=== PATIENT | male | born 1945 | race Caucasian/White ===

== ENCOUNTER 2023-01-30 05:25 | Inpatient (IN) ==
--- NOTE | 2023-01-30 07:05 | Emergency Department Note ---
History of Present Illness General Chief complaint: Wound Recheck Stated complaint: RECHECK OF INJURY TO RIGHT THUMB Time Seen by Provider: 01/30/23 07:03 History of Present Illness This is a 77-year-old male who presents to the emergency department via private vehicle with complaints of "right thumb wound". The patient notes that he was seen here on 01/17/2023 for tablesaw injury to the right thumb. He is right- hand dominant. He states that he has not changed the dressing and has not seen the wound until today when he presented for suture removal and further assessment. He did take the antibiotics as prescribed. He did not follow-up with orthopedics as previously recommended. No fevers or chills. He does note some discomfort to the distal aspect of the right thumb but minimal overall. No nausea or vomiting. Home Medications Medication Instructions Recorded Confirmed Type aspirin 81 mg tablet 81 mg PO DAILY 08/02/22 01/30/23 History prevagen 1 cap PO DAILY 08/02/22 01/30/23 History atenolol 25 mg tablet 12.5 mg (1/2 x 25 mg) PO DAILY #45 12/23/22 01/30/23 Rx tabs atorvastatin 40 mg tablet 40 mg PO DAILY #90 tabs 12/23/22 01/30/23 Rx omeprazole 20 mg tablet,delayed 20 mg PO DAILY #90 tabs 12/23/22 01/30/23 Rx release docusate sodium 100 mg capsule 100 mg PO BID PRN Constipation 01/30/23 01/30/23 History (Colace) Allergies Allergy/AdvReac Type Severity Reaction Status Date / Time No Known Allergies Allergy Unknown Unverified 08/02/22 09:02 Past Med/Surg History Medical History Hypercholesterolemia Hypertension Surgical History History of orthopedic surgery Family History Other No significant family history Social History Smoking Status: Unknown if ever smoked Tobacco Type: Cigarettes Hx Alcohol Use: No Hx Substance Use: No Preferred Language: Ecuadorean Communication Ability: Effective Investment Manager Required: No Beliefs That Will Affect Care: None Current Living Situation: Alone Feels Safe at Home: Yes Assistive Devices: None Review of Systems A total of 10 systems reviewed and were otherwise negative Physical Exam Vital Signs Vital Signs - 24 hr 01/30/23 05:30 01/30/23 07:33 01/30/23 10:49 Temperature 36.5 C Temperature Source Temporal Artery Scan Pulse Rate 65 Pulse Rate [Finger] 56 L 62 Pulse Rhythm [Finger] Regular Regular Pulse Strength [Finger] Normal Normal Respiratory Rate 14 18 18 Respiratory Effort / Characteristics Non-Labored Spontaneous Non-Labored Spontaneous Non-Labored Spontaneous Respiratory Depth Normal Normal Normal Respiratory Pattern Regular Regular Blood Pressure 156/70 H Blood Pressure [Right Arm] 150/80 H 144/82 H Blood Pressure Mean 98 Blood Pressure Mean [Right Arm] 103 102 Blood Pressure Position [Right Arm] Sitting Pulse Oximetry 100 98 99 Oxygen Delivery Method Room Air Room Air Room Air Sepsis Recent Fever Within 48 Hours No Sepsis New/Unexplained Change in Mental Status No Sepsis Action Taken by Nursing No Action Required 01/30/23 12:50 Temperature Temperature Source Pulse Rate Pulse Rate [Finger] 66 Pulse Rhythm [Finger] Regular Pulse Strength [Finger] Respiratory Rate 18 Respiratory Effort / Characteristics Non-Labored Spontaneous Respiratory Depth Normal Respiratory Pattern Regular Blood Pressure Blood Pressure [Right Arm] 125/72 Blood Pressure Mean Blood Pressure Mean [Right Arm] 89 Blood Pressure Position [Right Arm] Pulse Oximetry 98 Oxygen Delivery Method Room Air Sepsis Recent Fever Within 48 Hours Sepsis New/Unexplained Change in Mental Status Sepsis Action Taken by Nursing VITAL SIGNS - Vital signs and nursing notes were reviewed. Stable and afebrile. GENERAL - 77-year-old male appearing his stated age who is in no acute distress. Communicates well with provider and answers questions appropriately. SKIN - R thumb with dark discoloration, proximal erythema with intact sutures. Pictures of the wounds obtained after appropriate sent with the patient with images as above. HEAD - NC/AT. MOUTH/OROPHARYNX - Without perioral cyanosis. NECK - Neck with FROM. No nuchal rigidity. LUNGS -CTA CARDIAC - RRR EXTREMITIES - No clubbing or peripheral cyanosis. Chronic right thumb with a darkened distal region with diminished cap refill. Nail intact. Sutures intact. +5/5 strength noted in UE/LE bilaterally. NEUROLOGIC - Cranial nerves II through XII grossly intact. PSYCH - A&O, and cooperates fully with examiner. Pt is very pleasant and interacts well with examiner. Course Administered Medications Aspirin (Aspirin 81 Mg Ectab) 81 mg PO DAILY [facility] Stop: 03/02/23 08:59 Last Admin: 02/02/23 09:12 Dose: 81 mg Documented By: Admin: 02/01/23 08:40 Dose: 81 mg Documented By: Admin: 01/31/23 08:20 Dose: 81 mg Documented By: MING Atenolol (Atenolol 25 Mg Tablet) 12.5 mg PO DAILY [facility] Stop: 03/02/23 08:59 Last Admin: 02/02/23 09:12 Dose: 12.5 mg Documented By: Admin: 02/01/23 08:39 Dose: 12.5 mg Documented By: Admin: 01/31/23 08:21 Dose: 12.5 mg Documented By: MING Atorvastatin Calcium (Atorvastatin 40 Mg Tab) 40 mg PO DAILY [facility] Stop: 03/02/23 08:59 Last Admin: 02/02/23 09:12 Dose: 40 mg Documented By: Admin: 02/01/23 08:40 Dose: 40 mg Documented By: Admin: 01/31/23 08:21 Dose: 40 mg Documented By: MING Hydromorphone HCl (Hydromorphone Inj 1 Mg/Ml Syringe) 1 mg IV Q4H PRN PRN Reason: 7,8,9,10 Stop: 02/14/23 17:18 Last Admin: 01/31/23 21:52 Dose: 1 mg Documented By: KATE Vancomycin HCl 1,000 mg/ (Sodium Chloride) 270 mls @ 200 mls/hr IV Q12H [facility] Stop: 03/15/23 15:59 Last Infusion: 02/02/23 06:52 Dose: Infused Documented By: Admin: 02/02/23 04:43 Dose: 200 mls/hr Documented By: Infusion: 02/01/23 17:48 Dose: Infused Documented By: Admin: 02/01/23 16:25 Dose: 200 mls/hr Documented By: VIDYA Miscellaneous (Remove Nicoderm Patch) 1 each N/A DAILY@0859 [facility] Stop: 03/02/23 08:58 Last Admin: 02/02/23 09:12 Dose: 1 each Documented By: Admin: 02/01/23 08:00 Dose: 1 each Documented By: Admin: 01/31/23 07:04 Dose: Not Given Documented By: SUGAR Multivitamins (Multivitamin Tab) 1 tab PO QAM [facility] Stop: 03/03/23 08:59 Last Admin: 02/02/23 09:12 Dose: 1 tab Documented By: Admin: 02/01/23 08:40 Dose: 1 tab Documented By: VIDYA Nicotine (Nicotine 21 Mg/24 Hr Tdsy) 21 mg TD DAILY [facility] Stop: 03/01/23 18:59 Last Admin: 02/02/23 09:11 Dose: 21 mg Documented By: Admin: 02/01/23 07:59 Dose: 21 mg Documented By: Admin: 01/31/23 08:16 Dose: Not Given Documented By: Admin: 01/30/23 19:20 Dose: 21 mg Documented By: MORGAN Olanzapine (Olanzapine 10 Mg/2.1 Ml Sdv) 2.5 mg IM Q4H PRN PRN Reason: agitation Stop: 03/01/23 22:14 Last Admin: 01/31/23 06:26 Dose: 2.5 mg Documented By: KATE Pantoprazole Sodium (Pantoprazole 40 Mg Tab) 40 mg PO DAILY [facility]; Protocol Stop: 03/02/23 08:59 Last Admin: 02/02/23 09:12 Dose: 40 mg Documented By: Admin: 02/01/23 08:40 Dose: 40 mg Documented By: Admin: 01/31/23 08:21 Dose: 40 mg Documented By: MING Sennosides (Senna 8.6 Mg Tab) 17.2 mg PO HS [facility] Stop: 03/02/23 20:59 Last Admin: 02/01/23 20:46 Dose: 17.2 mg Documented By: Admin: 01/31/23 19:48 Dose: Not Given Documented By: SUGAR Discontinued Medications Bupivacaine HCl (Bupivacaine 0.5 % 5 Mg/1 Ml Mpf 30ml Vial) Confirm Administered Dose 30 ml .ROUTE .STK-MED ONE Stop: 01/31/23 13:50 Last Admin: 01/31/23 14:51 Dose: 8 ml Documented By: MILTON Cefepime HCl (Maxipime) 2,000 mg in 20 mls @ 5 mls/min IV NOW STA; Protocol Stop: 01/30/23 09:27 Last Admin: 01/30/23 10:43 Dose: 5 mls/min Documented By: ROBIN Vancomycin HCl 1,500 mg/ (Sodium Chloride) 530 mls @ 200 mls/hr IV NOW ONE Stop: 01/30/23 12:02 Last Admin: 01/30/23 10:43 Dose: 200 mls/hr Documented By: ROBIN Cefazolin Sodium (Ancef 2000mg) 2,000 mg in 15 mls @ 3.75 mls/min IV PREOP ONE; Protocol Stop: 01/31/23 06:03 Last Admin: 01/31/23 13:24 Dose: Not Given Documented By: VICTOR MANUEL Lactated Ringer's (Lr) 1,000 mls @ 80 mls/hr IV .[id number] [facility] Stop: 03/02/23 05:59 Last Infusion: 01/31/23 17:37 Dose: Infused Documented By: Admin: 01/31/23 05:12 Dose: 80 mls/hr Documented By: KATE Cefepime HCl 2,000 mg/ Syringe 20 mls @ 5 mls/min IV Q8H [facility]; Protocol Stop: 03/13/23 18:29 Last Admin: 02/01/23 10:16 Dose: 5 mls/min Documented By: Admin: 02/01/23 03:13 Dose: 5 mls/min Documented By: Admin: 01/31/23 19:32 Dose: 5 mls/min Documented By: Admin: 01/31/23 10:11 Dose: 5 mls/min Documented By: Admin: 01/31/23 02:13 Dose: 5 mls/min Documented By: Admin: 01/30/23 18:40 Dose: 5 mls/min Documented By: ALLAN Vancomycin HCl 750 mg/ Sodium (Chloride) 265 mls @ 200 mls/hr IV Q8H [facility]; Protocol Stop: 03/13/23 19:59 Last Infusion: 02/01/23 06:52 Dose: Infused Documented By: Admin: 02/01/23 05:27 Dose: 200 mls/hr Documented By: Infusion: 01/31/23 21:12 Dose: Infused Documented By: Admin: 01/31/23 19:46 Dose: 200 mls/hr Documented By: Infusion: 01/31/23 13:40 Dose: Infused Documented By: Admin: 01/31/23 12:28 Dose: 200 mls/hr Documented By: Infusion: 01/31/23 08:56 Dose: Infused Documented By: Admin: 01/31/23 05:12 Dose: 200 mls/hr Documented By: Infusion: 01/30/23 23:10 Dose: Infused Documented By: Admin: 01/30/23 21:43 Dose: 200 mls/hr Documented By: MORGAN Sodium Chloride (Nss) 1,000 mls @ 100 mls/hr IV .Q10H [facility] Stop: 02/01/23 06:00 Last Admin: 02/01/23 05:29 Dose: Not Given Documented By: Infusion: 02/01/23 05:20 Dose: Infused Documented By: Admin: 01/31/23 17:36 Dose: 100 mls/hr Documented By: SUGAR Ketorolac Tromethamine (Ketorolac Tromethamine 15 Mg/Ml Vial) 15 mg IV Q6H [facility] Stop: 02/01/23 11:20 Last Admin: 02/01/23 11:45 Dose: 15 mg Documented By: Admin: 02/01/23 05:24 Dose: 15 mg Documented By: Admin: 02/01/23 00:16 Dose: 15 mg Documented By: Admin: 01/31/23 17:55 Dose: 15 mg Documented By: SUGAR Lidocaine HCl (Lidocaine 1% Local 20 Ml Vial) Confirm Administered Dose 20 ml .ROUTE .STK-MED ONE Stop: 01/31/23 13:50 Last Admin: 01/31/23 14:52 Dose: 8 ml Documented By: MILTON Olanzapine (Olanzapine Zydis 10 Mg Orally Dis. Tab) 10 mg PO NOW STA Stop: 01/30/23 21:15 Last Admin: 01/30/23 21:26 Dose: 10 mg Documented By: MORGAN Olanzapine (Olanzapine 10 Mg/2.1 Ml Sdv) 2.5 mg IM NOW STA Stop: 01/31/23 06:35 Last Admin: 01/31/23 06:39 Dose: 2.5 mg Documented By: KATE Medical Decision Making Laboratory Data 02/02/23 08:09 02/02/23 08:09 Lab Results 01/30/23 Range/Units 06:55 WBC 7.49 (4.8-10.8) K/ul RBC 4.16 L (4.70-6.10) M/uL Hgb 12.9 L (14.0-18.0) g/dl Hct 37.6 L (42.0-52.0) % MCV 90.4 (80.0-100.0) fL MCH 31.0 (25.0-34.0) pg MCHC 34.3 (32.0-36.0) g/dL RDW Std Deviation 42.9 (36.4-46.3) fL RDW Coeff of Emmy 13.0 (11.5-14.5) % Plt Count 336 (130-400) K/uL MPV 9.1 L (9.4-12.4) fL Immature Gran % (Auto) 0.3 % Neut % (Auto) 68.3 % Lymph % (Auto) 19.4 % [place] % (Auto) 10.5 % Eos % (Auto) 0.8 % Baso % (Auto) 0.7 % Neut # (Auto) 5.12 (1.40-6.50) K/uL Lymph # (Auto) 1.45 (1.20-3.40) K/uL [place] # (Auto) 0.79 H (0.11-0.59) K/uL Eos # (Auto) 0.06 (0.00-0.50) K/uL Baso # (Auto) 0.05 (0.00-0.20) K/uL Immature Gran # (Auto) 0.02 (0.01-0.20) K/uL ESR 32 H (0-20) mm/hr Sodium 132 L (136-145) mmol/L Potassium 3.9 (3.5-5.1) mmol/L Chloride 97 L (98-107) mmol/L Carbon Dioxide 29 (21-32) mmol/L Anion Gap 6 (3-11) BUN 9 (6-23) mg/dl Creatinine 0.63 (0.6-1.4) mg/dl Est Cr Clr Drug Dosing 104.1 ml/min Est GFR ( Amer) 110.9 ml/min Est GFR (Non-Af Amer) 95.7 ml/min BUN/Creatinine Ratio 14.3 (10-20) Glucose 128 H (70-99(Fasting)) mg/dl Lactate 0.6 (0.4-2.0) mmol/L Calcium 9.3 (8.6-10.3) mg/dl C-Reactive Protein < 0.50 (0-0.5) mg/dl Procalcitonin < 0.05 (0-0.5) ng/ml Imaging Data Radiologist's Impression: Finger X-Ray 01/30/23 06:40 RIGHT THUMB 3 VIEWS CLINICAL HISTORY: Right thumb injury. FINDINGS: 3 views of the right thumb are compared to study dated 01/17/2023. The skeletal structures are osteopenic. Again seen is a comminuted horizontal intra- articular fracture through the base of the first distal phalanx. The largest fragments are distracted by up to 4 mm, with numerous additional tiny surrounding bone fragments. No new fracture is seen. Significant soft tissue edema is present in the right thumb. 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 IMPRESSION: No significant change in the appearance of a comminuted and displaced fracture through the base of the first distal phalanx as above. Electronically signed by: Judson Knowles M.D. 01/30/2023 7:22 AM MDM Narrative Patient was seen and evaluated as above in room C1. Review was performed of triage nursing notes and vital signs. After obtaining a thorough history and physical examination the above work up was performed. Patient presents to us today for evaluation of a right thumb wound status post repair about 2 weeks ago. He was to follow-up with orthopedics but has not thus far. On examination there is concern for nonviable tissue distal to the fracture site as evidenced by dark discoloration of the distal thumb without cap refill. There is also concern for infection noting the proximal erythema within the same digit. Options of care were discussed with the patient. IV access was established. Labs were drawn. X-ray of the thumb was obtained. No significant change compared to before noting a displaced fracture to the base of the first distal phalanx. No concerning leukocytosis. Mild anemia hemoglobin of 12.9. Mild elevation of ESR with a normal CRP. Mild hyponatremia 132. Procalcitonin and lactate normal. Blood cultures are pending. I discussed the case with orthopedics and Dr. Infante came to bedside. Wound culture was obtained which I ordered. IV antibiotics to include cefepime and vancomycin ordered after discussing plan of care with orthopedics. Plan will be for admission, surgical intervention. Please refer to further documentation regarding his stay. In the evaluation and treatment of this patient the following differential diagnoses were entertained: Infected open fracture, cellulitis, abscess, bacteremia, osteomyelitis, among others. Impression & Plan Open fracture of phalanx of finger, Infection of thumb Discharge Plan Visit Data Chief Complaint: Wound Recheck Stated Complaint: RECHECK OF INJURY TO RIGHT THUMB ED Provider: [facility] ED Midlevel Provider: Laith Robles Discharge Problem: Open fracture of phalanx of finger, Infection of thumb Patient Disposition: Admitted As Inpatient Condition: Good Discharge Instructions Interventions: ED Discharge Assessment Last Done: 01/30/23 13:38 Addendum February 02, 2023 14:55 HPI: The patient is a 77-year-old gentleman, [id number], who presents emergency department for evaluation of worsening right thumb wound in the setting of being seen in this apartment here on 01/17 for a table saw injury to the right thumb. His case was discussed with orthopedics at that time with recommendations for irrigation, closure, ABX and follow up that week. Unfortunately, the patient had not changed the dressing since he was seen at that time and did not follow-up with orthopedics as was recommended. He denies any fevers or chills. Denies any nausea or vomiting. A/P: Per FAN Bamat's examination there is concern for nonviable tissue related to the patient's previously repaired open fracture and concern for infection with erythema extending proximally. X-rays obtained and demonstrated no significant change in the fracture to the base of the first distal phalanx. ESR is mildly elevated and CRP was normal. Procalcitonin and lactate are normal. There is no significant leukocytosis. Blood cultures were obtained. Wound culture was obtained and IV cefepime and IV vancomycin were initiated empirically. [employer] reviewed with orthopedic surgery. Appreciate consultation and recommendations. Patient was admitted for further management. I was consulted by the Advanced Practice Provider and was substantively involved in the patient's visit.This includes aspects of the HPI, MDM, diagnostic interpretations, and disposition/plan. I discussed the case with the FAN and agree with the findings and plan as documented in FAN Bamat's note.
[2023-01-30 07:19] LABS: Basophils # (auto) 0.05 K/uL (0.00-0.20); Basophils % (auto) 0.7 %; Eosinophils # (auto) 0.06 K/uL (0.00-0.50); Eosinophils % (auto) 0.8 %; Hematocrit (blood only) 37.6 % (42.0-52.0); Hemoglobin 12.9 g/dl (14.0-18.0); Immature Granulocytes # (auto) 0.02 K/uL (0.01-0.20); Immature Granulocytes % (auto) 0.3 %; Lymphocytes # (auto) 1.45 K/uL (1.20-3.40); Lymphocytes % (auto) 19.4 %; Mean Corpuscular Hgb Conc 34.3 g/dL (32.0-36.0); Mean Corpuscular Volume 90.4 fL (80.0-100.0); Mean Platelet Volume 9.1 fL (9.4-12.4); Monocytes # (auto) 0.79 K/uL (0.11-0.59); Monocytes % (auto) 10.5 %; Neutrophils # (auto) 5.12 K/uL (1.40-6.50); Neutrophils % (auto) 68.3 %; Platelet Count 336 K/uL (130-400); RDW Standard Deviation 42.9 fL (36.4-46.3); Red Blood Count 4.16 M/uL (4.70-6.10); White Blood Count 7.49 K/ul (4.8-10.8)
--- NOTE | 2023-01-30 07:24 | XRay Report ---
RIGHT THUMB 3 VIEWS CLINICAL HISTORY: Right thumb injury. FINDINGS: 3 views of the right thumb are compared to study dated 01/17/2023. The skeletal structures are osteopenic. Again seen is a comminuted horizontal intra-articular fracture through the base of th e first distal phalanx. The largest fragments are distracted by up to 4 mm, with numerous additional tiny surrounding bone fragments. No new fracture is seen. Significant soft tissue edema is present in the right thumb. 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 IMPRESSION: No significant change in the appearance of a comminuted and displaced fracture through th e base of the first distal phalanx as above. Electronically signed by: Judson Knowles M.D. 01/30/2023 7:22 AM
[2023-01-30 07:31] LABS: Anion Gap 6 (3-11); BUN Creatinine Ratio 14.3 (10-20); Blood Urea Nitrogen 9 mg/dl (6-23); C Reactive Protein < 0.50 mg/dl (0-0.5); Calcium 9.3 mg/dl (8.6-10.3); Carbon Dioxide 29 mmol/L (21-32); Chloride 97 mmol/L (98-107); Creatinine Clr Calc Pharmacy 104.1 ml/min; Est GFR (African American) 110.9 ml/min; Est GFR (Non-African American) 95.7 ml/min; Glucose 128 mg/dl (70-99(Fasting)); Potassium 3.9 mmol/L (3.5-5.1); Sodium 132 mmol/L (136-145)
[2023-01-30] MEDS ORDERED: VANCOMYCIN CONSULT ACTIVE PRN ×2 (09:24→13:37)
[2023-01-30] MEDS ORDERED: CEFEPIME 2,000 MG/20 ML VIAL IV STA (09:24)
[2023-01-30] MEDS ORDERED: VANCOMYCIN HCL 1,500 MG in SODIUM CHLORIDE 0.9% 500 ML IV ONE (09:24)
--- NOTE | 2023-01-30 09:34 | Orthopedic Consultation ---
Date of Consultation January 30, 2023 Assessment & Plan (1) Open fracture of phalanx of finger: Speaking with the patient he knows who he is. He does not recall what hospital he went to previously to get this treated. He does not recall what he was supposed to do specifically in terms of treatment and does not recall whether or not he actually took the antibiotic. The x-ray shows a severely comminuted intra-articular fracture of the distal phalanx with joint disruption. The volar and dorsal portions are intact but split in half. He likely can initiate range of motion through these areas. Given the appearance of he has an infection. He is also a smoker and so there is likely vascular disease present as well. The fracture itself is not reconstructable particularly given his health and the infection. I suspect that there is early osteomyelitis developing although this is not clearly demons trated on the x-rays. Because of this I have recommended that he be admitted to the hospital. Given his health history particularly the early dementia I would get a medicine consult. Blood cultures have been done. Start IV antibiotics. Plan is for a revision amputation tomorrow. I would remove the entire distal phalanx and try to cover over the proximal phalanx with the available tissue although that may need to be shortened as well. We talked about the risks benefits the rehab and recovery. Patient is in agreement to proceed. I spoke to his brother Kermit as well as checks and discussed with them all of my findings and recommendations. I spoke with his daughter Angella who has power of brake repair mechanic. I talked with her about the injury the options the risks and benefits. I recommended the surgical procedure and she gave verbal informed consent in front of Loreta Del Cid as well as the nurse for the surgical procedure. Mr. Servin also signed as well. He has indicated an interest in leaving [facility]. Medicine consult for clearance as well as to address any treatments related to his dementia. History of Present Illness History of Present Illness Patient is 77 years old. Approximately 2 weeks ago he reports that he injured his right dominant thumb with a table saw. He was seen here at [facility]. Local wound care was provided. He sustained a comminuted fracture of the distal phalanx of the right thumb. He was discharged home and was supposed to follow- up with orthopedics. Apparent phone consultation was obtained with Dr. Grey. Patient received tetanus and Ancef. He was discharged on Keflex. It is not clear if he took a Keflex. He has apparent early dementia. He was supposed to follow-up with Dr. Maday Keenan but he did not. He came into the ER early this morning and we were consulted to see him. It is unclear what he did the past 2 weeks with the thumb. He reports some soreness but today offers no real specific complaint in terms of having fevers thumb pain redness swelling or drainage. Allergies Allergy/AdvReac Type Severity Reaction Status Date / Time No Known Allergies Allergy Unknown Unverified 08/02/22 09:02 Home Medications Medication Instructions Recorded Confirmed Type aspirin 81 mg tablet 81 mg PO DAILY 08/02/22 01/30/23 History prevagen 1 cap PO DAILY 08/02/22 01/30/23 History atenolol 25 mg tablet 12.5 mg PO DAILY #45 tabs 12/23/22 01/30/23 Rx atorvastatin 40 mg tablet 40 mg PO DAILY #90 tabs 12/23/22 01/30/23 Rx omeprazole 20 mg tablet,delayed 20 mg PO DAILY #90 tabs 12/23/22 01/30/23 Rx release docusate sodium 100 mg capsule 100 mg PO BID PRN Constipation 01/30/23 01/30/23 History (Colace) Patient History Medical History Hypercholesterolemia Hypertension Surgical History History of orthopedic surgery Family History Other No significant family history Social History Smoking Status: Current every day smoker Tobacco Type: Cigarettes Preferred Language: Guyanese Feels Safe at Home: Yes Review of Systems Review of Systems: His health history on the computer is noted and reviewed. He does smoke. There is no history of bleeding blood clots metal allergies or MRSA. Physical Exam Physical Exam: Evaluation of the right thumb reveals erythema down to the MP joint. The tip of the thumb is black and dusky. There is an area just under the nail where there is some whitish-pink tissue with questionable capillary refill. There is a laceration that extends from the ulnar to the radial side of the thumb just below the nail plate through the tuft of the finger in the coronal plane. It extends back to the level of the IP joint. Dorsal to this at the tip is where the dark dusky area is. This is also insensate. There is mild swelling of the thumb. He can slightly activate flexion and extension. The area feels lax and unstable. There is tenderness to palpation erythema and swelling. From the radial proximal corner there is serous drainage and with some pressure over the volar aspect of the wound in this area a very small amount of purulence is e vacuated. With his permission I took 2 stitches out in this area prepped the skin with alcohol and then took a deeper culture of the wound area. This is sent for Gram stain aerobic and anaerobic culture. Results & Data Vital Signs (Past 12 Hours) Vital Signs Temp Pulse Pulse Resp BP BP Pulse Ox 01/30/23 07:33 56 L 18 150/80 H 98 01/30/23 05:30 36.5 C 65 14 156/70 H 100 O2 Del Method 01/30/23 07:33 Room Air 01/30/23 05:30 Room Air Laboratory Results Laboratory Results WBC 7.49 K/ul (4.8-10.8) 01/30/23 06:55 RBC 4.16 M/uL (4.70-6.10) L 01/30/23 06:55 Hgb 12.9 g/dl (14.0-18.0) L 01/30/23 06:55 Hct 37.6 % (42.0-52.0) L 01/30/23 06:55 MCV 90.4 fL (80.0-100.0) 01/30/23 06:55 MCH 31.0 pg (25.0-34.0) 01/30/23 06:55 MCHC 34.3 g/dL (32.0-36.0) 01/30/23 06:55 RDW Std Deviation 42.9 fL (36.4-46.3) 01/30/23 06:55 RDW Coeff of Emmy 13.0 % (11.5-14.5) 01/30/23 06:55 Plt Count 336 K/uL (130-400) 01/30/23 06:55 MPV 9.1 fL (9.4-12.4) L 01/30/23 06:55 Immature Gran % (Auto) 0.3 % 01/30/23 06:55 Neut % (Auto) 68.3 % 01/30/23 06:55 Lymph % (Auto) 19.4 % 01/30/23 06:55 Arthur % (Auto) 10.5 % 01/30/23 06:55 Eos % (Auto) 0.8 % 01/30/23 06:55 Baso % (Auto) 0.7 % 01/30/23 06:55 Neut # (Auto) 5.12 K/uL (1.40-6.50) 01/30/23 06:55 Lymph # (Auto) 1.45 K/uL (1.20-3.40) 01/30/23 06:55 Arthur # (Auto) 0.79 K/uL (0.11-0.59) H 01/30/23 06:55 Eos # (Auto) 0.06 K/uL (0.00-0.50) 01/30/23 06:55 Baso # (Auto) 0.05 K/uL (0.00-0.20) 01/30/23 06:55 Immature Gran # (Auto) 0.02 K/uL (0.01-0.20) 01/30/23 06:55 ESR 32 mm/hr (0-20) H 01/30/23 06:55 Sodium 132 mmol/L (136-145) L 01/30/23 06:55 Potassium 3.9 mmol/L (3.5-5.1) 01/30/23 06:55 Chloride 97 mmol/L (98-107) L 01/30/23 06:55 Carbon Dioxide 29 mmol/L (21-32) 01/30/23 06:55 Anion Gap 6 (3-11) 01/30/23 06:55 BUN 9 mg/dl (6-23) 01/30/23 06:55 Creatinine 0.63 mg/dl (0.6-1.4) 01/30/23 06:55 Est Cr Clr Drug Dosing 104.1 ml/min 01/30/23 06:55 Est GFR ( Amer) 110.9 ml/min 01/30/23 06:55 Est GFR (Non-Af Amer) 95.7 ml/min 01/30/23 06:55 BUN/Creatinine Ratio 14.3 (10-20) 01/30/23 06:55 Glucose 128 mg/dl (70-99(Fasting)) H 01/30/23 06:55 Lactate 0.6 mmol/L (0.4-2.0) 01/30/23 06:55 Calcium 9.3 mg/dl (8.6-10.3) 01/30/23 06:55 C-Reactive Protein < 0.50 mg/dl (0-0.5) 01/30/23 06:55 Procalcitonin < 0.05 ng/ml (0-0.5) 01/30/23 06:55 Impressions Finger X-Ray 01/30/23 06:40 RIGHT THUMB 3 VIEWS CLINICAL HISTORY: Right thumb injury. FINDINGS: 3 views of the right thumb are compared to study dated 01/17/2023. The skeletal structures are osteopenic. Again seen is a comminuted horizontal intra- articular fracture through the base of the first distal phalanx. The largest fragments are distracted by up to 4 mm, with numerous additional tiny surrounding bone fragments. No new fracture is seen. Significant soft tissue edema is present in the right thumb. 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 IMPRESSION: No significant change in the appearance of a comminuted and displaced fracture through the base of the first distal phalanx as above. Electronically signed by: Judson Knowles M.D. 01/30/2023 7:22 AM (1) Open fracture of phalanx of finger Encounter type: initial encounter Finger: thumb Fracture alignment: displaced Laterality: right Phalanx: distal Qualified Code(s): S62.521B - Displaced fracture of distal phalanx of right thumb, initial encounter for open fracture
--- NOTE | 2023-01-30 10:39 | History & Physical Report ---
Date of Service January 30, 2023 Assessment & Plan (1) Open fracture of phalanx of finger: Plan: Plan for OR tomorrow with Dr Infante for right thumb I&D with partial amputation Written consent obtained from patient and patient's POA via phone Medical consult placed for medical clearance Blood and wound cultures taken, will continue to follow Started on IV antibioics Vanco and cefepime, will continue these once admitted as well Regular diet, NPO tonight 11:59, discussed this with the patient who responded "we'll see" and I discussed with him the importance of NPO after midnight prior to surgery 2grams IV ancef intraop Leave dressing on right thumb in tact IV Lactated ringers pre op TEDs/foot pumps Void terminal operations supervisor to OR Plan discussed with Dr Infante History of Present Illness Chief Complaint: right thumb wound Primary Care Provider: Joe Zarate MD Patient is a 77-year-old male PMH significant for HTN, HLD, tobaccor user, who presents to the emergency department today via private vehicle with complaints of "right thumb wound". The patient notes that he was seen here on 01/17/2023 for tablesaw injury to the right thumb. He is right-hand dominant. He states that he has not changed the dressing and has not seen the wound until today when he presented for suture removal and further assessment. He did take the antibiotics as prescribed. He did not follow-up with orthopedics as previously recommended. No fevers or chills. He does note some discomfort to the distal aspect of the right thumb but minimal overall. No nausea or vomiting. He was seen and evaluated by Dr Infante who recommended surgical intervention involved I&D and partial amputation of right thumb. We spoke with patients daughter who is POA. Patient is poor historian. Medical chart was reviewed. NKDA. He is on ASA 81mg daily but he says he does not know why. He says he has been smoking at least a ppd since he was 13. Allergies Allergy/AdvReac Type Severity Reaction Status Date / Time No Known Allergies Allergy Unknown Unverified 08/02/22 09:02 Home Medications Medication Instructions Recorded Confirmed Type aspirin 81 mg tablet 81 mg PO DAILY 08/02/22 01/30/23 History prevagen 1 cap PO DAILY 08/02/22 01/30/23 History atenolol 25 mg tablet 12.5 mg PO DAILY #45 tabs 12/23/22 01/30/23 Rx atorvastatin 40 mg tablet 40 mg PO DAILY #90 tabs 12/23/22 01/30/23 Rx omeprazole 20 mg tablet,delayed 20 mg PO DAILY #90 tabs 12/23/22 01/30/23 Rx release docusate sodium 100 mg capsule 100 mg PO BID PRN Constipation 01/30/23 01/30/23 History (Colace) Past Med/Surg History Medical History Hypercholesterolemia Hypertension Surgical History History of orthopedic surgery Family History Other No significant family history Social History Smoking Status: Current every day smoker Tobacco Type: Cigarettes Preferred Language: Venezuelan Feels Safe at Home: Yes Review of Systems Patient denies any h/o heart attack, stroke, or blood clots. Denies DM or kidney disease. Medical chart was also reviewed to confirm. He denies any recent illnesses, F/C, CP, SOB, coughing or wheezing. Physical Exam Physical Exam: General: Patient is sitting on bed awake and alert. Oriented to person place and time. He does have baseline dementia and he is frusterated when i entered room discussing with ER provider that he may leave AMA. Pt was cooperative during exam Cardiovascular: +s1, +s2, RRR, no murmurs Lungs: CTABL, no wheezing/rales/rhonchi present HENT: No obvious deformity or trauma. Poor dentition. Vision and hearing grossly in tact. Patient was seen in conjuction with Dr Infante who performed full examination of right thumb, please refer to dictation below from his previous note in regards to right thumb physical exam "Evaluation of the right thumb reveals erythema down to the MP joint. The tip of the thumb is black and dusky. There is an area just under the nail where there is some whitish-pink tissue with questionable capillary refill. There is a laceration that extends from the ulnar to the radial side of the thumb just below the nail plate through the tuft of the finger in the coronal plane. It extends back to the level of the IP joint. Dorsal to this at the tip is where the dark dusky area is. This is also insensate. There is mild swelling of the thumb. He can slightly activate flexion and extension. The area feels lax and unstable. There is tenderness to palpation erythema and swelling. From the radial proximal corner there is serous drainage and with some pressure over the volar aspect of the wound in this area a very small amount of purulence is evacuated. With his permission I took 2 stitches out in this area prepped the skin with alcohol and then took a deeper culture of the wound area. This is sent for Gram stain aerobic and anaerobic culture." Patient dressing was in tact Results & Data Vital Signs (Past 12 Hours) Vital Signs Temp Pulse Pulse Resp BP BP Pulse Ox 01/30/23 07:33 56 L 18 150/80 H 98 01/30/23 05:30 36.5 C 65 14 156/70 H 100 O2 Del Method 01/30/23 07:33 Room Air 01/30/23 05:30 Room Air Diagnostic Findings Finger X-Ray 01/30/23 06:40 RIGHT THUMB 3 VIEWS CLINICAL HISTORY: Right thumb injury. FINDINGS: 3 views of the right thumb are compared to study dated 01/17/2023. The skeletal structures are osteopenic. Again seen is a comminuted horizontal intra- articular fracture through the base of the first distal phalanx. The largest fragments are distracted by up to 4 mm, with numerous additional tiny surrounding bone fragments. No new fracture is seen. Significant soft tissue edema is present in the right thumb. 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 IMPRESSION: No significant change in the appearance of a comminuted and displaced fracture through the base of the first distal phalanx as above. Electronically signed by: Judson Knowles M.D. 01/30/2023 7:22 AM (1) Open fracture of phalanx of finger Encounter type: initial encounter Finger: thumb Fracture alignment: displaced Laterality: right Phalanx: distal Qualified Code(s): S62.521B - Displaced fracture of distal phalanx of right thumb, initial encounter for open fracture
[2023-01-30] MEDS ORDERED: METOCLOPRAMIDE HCL INJ 5 MG/ML 2 ML VIAL IV PRN (10:51)
[2023-01-30] MEDS ORDERED: ONDANSETRON INJ 2 MG/ML 2 ML VIAL IV PRN (10:51)
[2023-01-30] MEDS ORDERED: ACETAMINOPHEN 325 MG TAB PO PRN (10:51)
[2023-01-30] MEDS ORDERED: DOCUSATE SODIUM 100 MG CAP PO PRN (11:07)
--- NOTE | 2023-01-30 14:11 | Pharmacy Report ---
Pharmacy PK ABX Note - Date of Service January 30, 2023 - Assessment and Plan Assessment 77 year old M receiving Vancomycin and Cefepime for treatment of open phalanx fracture. * Day #1 of antimicrobial therapy. * Afebrile and without leukocytosis. Procal and lactate negative. ESR slightly elevated, CRP normal. Renal fxn okay for age, unknown baseline. * To OR tomorrow for amputation. Plan Vancomycin * Loading dose: 1500 mg IV x 1 * Maintenance dose: 750 mg IV every 8 hours * Regimen is predicted to achieve target AUC/GURWINDER of 400-600 mg/L.hr * Trough level ordered for: 02/01/23 Cefepime * 2000 mg IV every 8 hours Pharmacy will continue to follow and will adjust dose/frequency as necessary. Thank you. Pharmacy has transitioned to AUC monitoring for vancomycin. AUC/GURWINDER is the preferred PK/PD target and is associated with decreased risk of nephrotoxicity compared to traditional trough targets.
--- NOTE | 2023-01-30 17:44 | Hospitalist Consultation ---
Date of Consultation January 30, 2023 Assessment & Plan (1) Open fracture of phalanx of finger: -Pain control, perioperative abx, DVT PPX, and IV fluids per the primary team -Patient is currently stable with pain well-controlled -Was consulted by the primary team for medical management and pre-operative cardiac clearance -Please see Pre-operative Cardiovascular examination plan for further details -Agree with continuing vancomycin and cefepime for now -Agree with continuing Aspirin tomorrow when the primary team is comfortable from a bleeding perspective -Will adjust diet to HH; NPO at midnight for likely OR tomorrow -AM CBC, CMP, Mag, PT/INR -Thank you for allowing us to participate in the care of this patient, please reach out with any questions or concerns -Medicine will continue to folow (2) Pre-operative cardiovascular examination: -Difficult to completely risk stratify due to the patient being a very poor historian and family being unable to provide a significant amount of additional information -The patient has been a heavy, long-time smoker (approximately 65 pack years) but does not appear to have a hx of obstructive CAD, MRI, or stroke -Patient had a non-diagnostic exercise stress echo on 08/23/22 without evidence of inducible ischemia with systolic EF WNL -At this time the patient would be considered a moderate risk on the Revised Cardiac Risk index for Pre-Operative risk; would not delay needed surgical clean out and repair for additional workup at this time -Will obtain Chest xray, ECG, and Limited Echo for further evaluation -If any concerning findings will touch base with the primary team (3) Cognitive dysfunction: -At the time of the consult the patient does not have capacity to make medical decisions as he is confused and has very poor insight into his clinical condition -Fall precautions have been ordered as the patient is frequently getting out of bed and is a fall risk -If the patient continues to be a danger to himself or becomes a danger to staff, restraints may need to be ordered (4) PAD (peripheral artery disease): -Agree with continuing aspirin when the primary team is comfortable from a bleeding risk (5) Cigarette smoker: -Will order nicotine patch (6) Hypertension: -Stable -Can continue atenolol as long as he remains hemodynamically stable (7) Mild CAD: -Continue aspirin when safe from a bleeding risk -Continue statin Plan The patient was discussed with Dr. Shah at the time of the consult Supervising Physician Co-Signing Physician Notes Patient seen and examined, chart reviewed, case discussed with Geovany Toribio PA-C and I agree with the assessment and plan as above except as otherwise noted Labs and images reviewed Sherif is a 77-year-old male with a history of nonobstructive CAD, tobacco abuse, hyperlipidemia, suprarenal aortic aneurysm who presents for a wound check and to an evaluation will need I&D and partial amputation. Patient does not have capacity due to dementia, case was discussed w/ pts daughter. Patient is on cefepime and Vanco. He does have an elevated A1c of 6.1, reasonable to continue cefepime/vancomycin rather than Rocephin/vancomycin, narrow antibiotics based on surgical cultures and clinical progression. CTAB, RRR. Thumb dressing C/D/I. Patient very agitated at time of assessment, reports that this is his problem and would like to go home. Discussed that he has a ongoing infection which is unlikely to get better without source control and recommend he remain for medical treatment. Did assess capacity, patient reports "this is my problem", but is unable to elicit the risk/benefits of returning home with not operating if treatment. He is unable to relate how a worsening infection could harm health, and is unable to relate the risk/benefits of returning home as a applied situation. As such he does not demonstrate capacity to return home at time of assessment. Patient was discussed with family as noted above. Reviewed perioperative risk. Patient does not have a documented history of obstructive CAD, had a nondiagnostic stress test in 2022 but this did not show obvious inducible ischemia. He does not have pretreatment with insulin, no history of heart failure. Regular risk surgery. Overall RCRI suggests low risk category 1. We will obtain echo and EKG to confirm no wall motion abnormalities or ischemic change, if this is stable recommend proceeding to surgical source control. Agree with assessment and management as above History of Present Illness Reason for Consultation: Medical management, pre-operative clearance Requesting Physician: Xander Infante MD Attending Physician: Dr. Xander Shah History of Present Illness Sherif is a 77 year old male with a H significant non-obstructive CAD, HTN, Dyslipidemia, Tobacco abuse, and suprarenal abdominal aortic aneurysm who presented to the [facility] ED on 01/30 for wound re-check, after initially sustaining a right thumb table saw injury on 01/17. He remained stable in the ED. Labs were significant for an ESR of 32, and sodium of 132. Xray of the right thumb was read as "No significant change in the appearance of a comminuted and displaced fracture through the base of the first distal phalanx as above.". The patient was evaluated by Dr. Infante in the ED who will be taking the patient to the OR tomorrow for I&D and at least partial amputation due. Per Dr. Infante's note, the patient is a poor historian with likely undiagnosed Dementia. Dr. Infante spoke with the patient's family, including his Daughter/POA (Angella) who gave consent for surgery tomorrow. We were consulted fro pre-operative clearance and medical management. At the time of the exam the patient was sitting in bed in no acute distress, there was no family present. He clearly has decreased cognitive decline as he is frequently forgetful to recent events and past events including PMH/prescribed medications. He thought that he was evaluated by out Orthopedic team yesterday even though they evaluated him in the late morning. He was able to explain that he has been smoking 1 pack of Cigarettes daily since he was 13 but was unable to explain if he has a history of [place], stroke, or other significant PMH. He denies recent chest pain or HULL. He cannot confirm which medications he has been taking. I called and spoke to his Daughter/POA (Angella Galaviz [phone]) to obtain further information. She confirms that he father's cognition has been steadily declining. She is unsure of her father's PMH as her mother sheltered her from most of his medical issues growing up. She does not believe that her father has a history of [place] or stroke. She does not think that he has been taking aspirin regularly as she did not see any aspirin when she was at his house on Monday. She will coming back to [place] tomorrow and will be staying with the patient after discharge but will need assistance with obtaining home health. She confirms that the patient is a Full Code and she is his POA. Please refer to Dr. Shah's attestation for any changes to the treatment plan Allergies Allergy/AdvReac Type Severity Reaction Status Date / Time No Known Allergies Allergy Unknown Unverified 08/02/22 09:02 Home Medications Medication Instructions Recorded Confirmed Type aspirin 81 mg tablet 81 mg PO DAILY 08/02/22 01/30/23 History prevagen 1 cap PO DAILY 08/02/22 01/30/23 History atenolol 25 mg tablet 12.5 mg PO DAILY #45 tabs 12/23/22 01/30/23 Rx atorvastatin 40 mg tablet 40 mg PO DAILY #90 tabs 12/23/22 01/30/23 Rx omeprazole 20 mg tablet,delayed 20 mg PO DAILY #90 tabs 12/23/22 01/30/23 Rx release docusate sodium 100 mg capsule 100 mg PO BID PRN Constipation 01/30/23 01/30/23 History (Colace) Patient History Medical History Hypercholesterolemia Hypertension Surgical History History of orthopedic surgery Family History Other No significant family history Social History Smoking Status: Unknown if ever smoked Tobacco Type: Cigarettes Hx Alcohol Use: No Hx Substance Use: No Preferred Language: Luxembourgish Communication Ability: Effective Corporate Securities Research Analyst Required: No Beliefs That Will Affect Care: None Current Living Situation: Alone Feels Safe at Home: Yes Safety Concerns: Feels Safe At This Time Assistive Devices: Glasses Physical Exam Physical Exam: Physical Exam: General: In no acute distress, stated age, poor hygiene, non-toxic appearing HEENT: Normocephalic, atraumatic, no scleral icterus, pupils around round, symmetrical, and reactive to light, moist mucus membranes, trachea midline, no thyromegaly Chest/Pulm: No respiratory distress, symmetrical chest expansion, clear carin th sounds throughout Cardiac: RRR, no murmurs noted Abdomen: Negative for ascites and bruising, normoactive bowel sounds, soft, non-tender to palpation throughout Musculoskeletal: Patient with right thumb currently wrapped without signs of drainage, intact sensation and motor function in the right digits, intact radial pulse in the right upper extremity Extremities: Radial, dorsalis pedis, and posterior tibial pulses are intact and symmetrical, no edema noted in the BL LE's Skin: Warm, dry, no rashes , lesions, or scars noted Neuro: Alert and oriented to person only, no focal defects, CN II-XII tested and intact, no tremors noted Psych: No acute distress, intermittently confused with poor insight into his acute clinical condition Results & Data Results & Data Vital Signs (Past 12 Hours) Vital Signs Pulse Resp BP Pulse Ox O2 Del Method 01/30/23 15:43 64 16 143/68 H 98 Room Air 01/30/23 14:00 68 20 142/67 H 96 Room Air 01/30/23 12:50 66 18 125/72 98 Room Air 01/30/23 10:49 62 18 144/82 H 99 Room Air 01/30/23 07:33 56 L 18 150/80 H 98 Room Air Laboratory Results Abnormal lab results 01/30/23 01/30/23 01/30/23 Range/Units 06:55 06:55 06:55 RBC 4.16 L (4.70-6.10) M/uL Hgb 12.9 L (14.0-18.0) g/dl Hct 37.6 L (42.0-52.0) % MPV 9.1 L (9.4-12.4) fL Wilcox # (Auto) 0.79 H (0.11-0.59) K/uL ESR 32 H (0-20) mm/hr Sodium 132 L (136-145) mmol/L Chloride 97 L (98-107) mmol/L Glucose 128 H (70-99(Fasting)) mg/dl Diagnostic Findings Finger X-Ray 01/30/23 06:40 RIGHT THUMB 3 VIEWS CLINICAL HISTORY: Right thumb injury. FINDINGS: 3 views of the right thumb are compared to study dated 01/17/2023. The skeletal structures are osteopenic. Again seen is a comminuted horizontal intra- articular fracture through the base of the first distal phalanx. The largest fragments are distracted by up to 4 mm, with numerous additional tiny surrounding bone fragments. No new fracture is seen. Significant soft tissue edema is present in the right thumb. 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 IMPRESSION: No significant change in the appearance of a comminuted and displaced fracture through the base of the first distal phalanx as above. Electronically signed by: Judson Knowles M.D. 01/30/2023 7:22 AM ECG Additional Comments: Will obtain at the time of the consult PG Care Time/CCT Total # of Minutes Spent Total Time Spent with Patient: Total time spent is greater than 50% in coordination of care (as documented) at patient's floor/unit and/or counseling patient: [place] [address] IN/OBS CONSULT LVL 5,80M Patient Type New Medical Decision Making High Complexity Diagnoses Open fracture of phalanx of finger S62.609B Pre-operative cardiovascular examination Z01.810 Cognitive dysfunction F09 PAD (peripheral artery disease) I73.9 Cigarette smoker F17.210 Hypertension I10 Mild CAD I25.10
[2023-01-30] MEDS: CEFEPIME 2,000 MG in SYRINGE 0 ML IV SCH (18:40)
[2023-01-30] MEDS: NICOTINE 21 MG/24 HR TDSY TD SCH (19:20)
[2023-01-30] MEDS: VANCOMYCIN HCL 750 MG in SODIUM CHLORIDE 0.9% 250 ML IV SCH (21:43)
[2023-01-30] MEDS ORDERED: OLANZapine 10 MG/2.1 ML SDV IM PRN (22:10)
[2023-01-31] MEDS: CEFEPIME 2,000 MG in SYRINGE 0 ML IV SCH ×3 (02:13→19:32)
[2023-01-31] MEDS: VANCOMYCIN HCL 750 MG in SODIUM CHLORIDE 0.9% 250 ML IV SCH ×3 (05:12→19:46)
[2023-01-31] MEDS ORDERED: LACTATED RINGER'S 1,000 ML IV SCH (06:00)
[2023-01-31] MEDS ORDERED: ceFAZolin 2000MG 2,000 MG/15 ML SYR IV ONE (06:00)
[2023-01-31] MEDS ORDERED: OLANZapine 10 MG/2.1 ML SDV IM STA (06:34)
--- NOTE | 2023-01-31 07:38 | XRay Report ---
XR chest 1V portable HISTORY: pre-operative clearance COMPARISON: None. FINDINGS: The lungs are clear. Cardiac silhouette is normal in size. No pleural effusions. No pneumot horax. IMPRESSION: No acute process. ACT 112: Negative or not required by law. Electronically signed by: Jude Quan M.D. 01/31/2023 7:37 AM
--- NOTE | 2023-01-31 08:00 | Electrocardiogram Report ---
Test Reason : Blood Pressure : / mmHG Vent. Rate : 067 BPM Atrial Rate : 067 BPM P-R Int : 148 ms QRS Dur : 098 ms QT Int : 370 ms P-R-T Axes : 080 057 061 degrees QTc Int : 390 ms Normal sinus rhythm Normal ECG When compared with ECG of 02-AUG-2022 08:45, (unconfirmed) Vent. rate has increased BY 26 BPM Confirmed by Ron Luciano ([id number]) on 01/31/2023 7:59:54 AM Referred By: REFERRED SELF Confirmed By:Cayetano Luciano
[2023-01-31] MEDS: NICOTINE 21 MG/24 HR TDSY TD SCH (08:16)
[2023-01-31] MEDS: ASPIRIN 81 MG ECTAB PO SCH (08:20)
[2023-01-31] MEDS: ATENOLOL 25 MG TABLET PO SCH (08:21)
[2023-01-31] MEDS: ATORVASTATIN 40 MG TAB PO SCH (08:21)
[2023-01-31] MEDS: PANTOprazole 40 MG TAB PO SCH (08:21)
[2023-01-31] MEDS ORDERED: NON-FORMULARY MEDICATION (Prevagen 1 CAP) PO SCH (09:00)
--- NOTE | 2023-01-31 09:12 | Orthopedic Progress Note ---
Date of Service January 31, 2023 Assessment & Plan (1) Open fracture of phalanx of finger: Plan: Pt was combative early, he has since calmed down with medication and is anticipated to go to the OR today with Dr Infante for right thumb I&D with partial amputation Written consent obtained from patient and patient's POA via phone Medical consult for medical clearance obtained, recommened: "At this time the patient would be considered a moderate risk on the Revised Cardiac Risk index for Pre-Operative risk;would not delay needed surgical clean out and repair for additional workup at this time" Xray of chest completed and results show no acute findings. EKG completed Pt refused Echo Blood and wound cultures taken, will continue to follow Will continue with IV antibioics Vanco and cefepime, Continue with NPO diet patient was advised on maintaining this. Previously ordered for surgery: 2grams IV ancef intraop IV Lactated ringers pre op TEDs/foot pumps Void compilation clerk to OR Present on Admission?: Yes Admission and Anticipated Discharge Date Admission Date: January 30, 2023 Subjective Pt was seen bedside this am. He has the history of open fracture of the right thumb. There is a nurse present in the room for "one on one" due to pt was combative this morning. He also pulled his IV, however after he was calmed down he was agreeable to have IV placed. He is resting comfortably upon me entering the room. He was aroused easily. He states he has some pain in the right thumb and rated 6/10. He states he has pain with bumping the thumb otherwise it is a dull ache. He denies any drainage. He denies any fever or chills. Nursing reports he has remained NPO having a sip of water for medication and ice chips per order that was placed. Review of Systems Review of Systems: Please refer to HPI Physical Exam Physical Exam: General: Pt was sleeping, easily aroused noncombative, Alert to person Integumentary/Musculoskeletal: Dressing is in place over the right hand. This is clean and no drainage present. He is able to move the hand freely and does not appear to cause any pain. Results & Data Vital Signs (Past 12 Hours) Vital Signs Temp Pulse Resp BP BP Pulse Ox O2 Del Method 01/31/23 08:00 Room Air 01/31/23 08:18 36.4 C L 61 18 143/78 H 99 Room Air 01/31/23 01:01 36.4 C L 73 16 139/79 98 Room Air 01/31/23 00:57 Room Air 01/30/23 21:25 68 16 160/80 H 98 Room Air Laboratory Results Microbiology 01/30/23 06:55 Aerobic Blood Culture - Preliminary Blood No growth in Aerobic bottle after 24 hours. Anaerobic Blood Culture - Preliminary No growth in Anaerobic bottle after 24 hours. 01/30/23 06:55 Aerobic Blood Culture - Preliminary Blood No growth in Aerobic bottle after 24 hours. Anaerobic Blood Culture - Preliminary No growth in Anaerobic bottle after 24 hours. 01/30/23 09:08 Gram Stain - Final Thumb,Right Diagnostic Findings Chest X-Ray 01/30/23 18:21 XR chest 1V portable HISTORY: pre-operative clearance COMPARISON: None. FINDINGS: The lungs are clear. Cardiac silhouette is normal in size. No pleural effusions. No pneumothorax. IMPRESSION: No acute process. ACT 112: Negative or not required by law. Electronically signed by: Jude Quan M.D. 01/31/2023 7:37 AM
[2023-01-31 09:42] LABS: Basophils # (auto) 0.07 K/uL (0.00-0.20); Basophils % (auto) 1.1 %; Eosinophils # (auto) 0.04 K/uL (0.00-0.50); Eosinophils % (auto) 0.6 %; Hematocrit (blood only) 35.4 % (42.0-52.0); Hemoglobin 12.2 g/dl (14.0-18.0); Immature Granulocytes # (auto) 0.02 K/uL (0.01-0.20); Immature Granulocytes % (auto) 0.3 %; Lymphocytes % (auto) 20.5 %; Mean Corpuscular Hemoglobin 31.5 pg (25.0-34.0); Mean Corpuscular Hgb Conc 34.5 g/dL (32.0-36.0); Mean Corpuscular Volume 91.5 fL (80.0-100.0); Mean Platelet Volume 9.3 fL (9.4-12.4); Monocytes # (auto) 0.61 K/uL (0.11-0.59); Monocytes % (auto) 9.6 %; Neutrophils # (auto) 4.31 K/uL (1.40-6.50); Neutrophils % (auto) 67.9 %; Platelet Count 271 K/uL (130-400); RDW Coefficient of Variation 13.2 % (11.5-14.5); RDW Standard Deviation 44.3 fL (36.4-46.3); Red Blood Count 3.87 M/uL (4.70-6.10); White Blood Count 6.35 K/ul (4.8-10.8)
[2023-01-31 10:00] LABS: Albumin Globulin Ratio 1.4 (0.9-2); Albumin Level 3.9 gm/dl (3.4-5.0); BUN Creatinine Ratio 15.4 (10-20); Bilirubin,Total 0.7 mg/dl (0.2-1.0); Calcium 9.1 mg/dl (8.6-10.3); Creatinine Clr Calc Pharmacy 100.9 ml/min; Est GFR (African American) 109.5 ml/min; Est GFR (Non-African American) 94.5 ml/min; Globulin 2.8 gm/dl (2.5-4.0); Magnesium 2.1 mg/dl (1.7-2.4); Potassium 4.1 mmol/L (3.5-5.1); Total Protein 6.7 gm/dl (6.0-8.3)
[2023-01-31 10:15] LABS: Prothrombin Time 11.4 Seconds (9.0-12.0)
[2023-01-31] MEDS ORDERED: LIDOCAINE 2% 2 ML VIAL/AMP(20MG/ML) INFIL ONE (13:10)
[2023-01-31] MEDS ORDERED: MIDAZOLAM HCL 1 MG/ML 2ML VIAL ONE (13:10)
[2023-01-31] MEDS ORDERED: DEXAMETHASONE SOD INJ 4 MG/ML VIAL ONE (13:10)
[2023-01-31] MEDS ORDERED: PROPOFOL IV EMULSION 10 MG/ML 20 ML VIAL IV ONE (13:10)
[2023-01-31] MEDS ORDERED: fentaNYL citrate PF 100 MCG/2 ML VIAL ONE (13:10)
[2023-01-31] MEDS ORDERED: ONDANSETRON INJ 2 MG/ML 2 ML VIAL ONE (13:10)
[2023-01-31] MEDS ORDERED: BUPIVACAINE 0.5 % 5 MG/1 ML MPF 30ML VIAL ONE (13:49)
[2023-01-31] MEDS ORDERED: LIDOCAINE 1% LOCAL 20 ML VIAL ONE (13:49)
--- NOTE | 2023-01-31 13:54 | Anesthesiology Consultation ---
Date of Service January 31, 2023 Assessment & Plan Chart Review Chart Review: Acceptable Risk for Surgery Consults Requested none History Surgery Operation Date: 01/31/23 13:40 Proposed Procedures p Revision Amputation Right Thumb - Xander Infante MD Height/Weight Height: 6 ft 1 in Weight: 73.8 kg Allergies Allergy/AdvReac Type Severity Reaction Status Date / Time No Known Allergies Allergy Unknown Unverified 08/02/22 09:02 Medications Home Medications Medication Instructions Recorded Confirmed Last Taken aspirin 81 mg tablet 81 mg PO DAILY 08/02/22 01/30/23 01/29/23 prevagen 1 cap PO DAILY 08/02/22 01/30/23 Unknown atenolol 25 mg tablet 12.5 mg PO DAILY #45 tabs 12/23/22 01/30/23 01/29/23 atorvastatin 40 mg tablet 40 mg PO DAILY #90 tabs 12/23/22 01/30/23 01/29/23 omeprazole 20 mg tablet,delayed 20 mg PO DAILY #90 tabs 12/23/22 01/30/23 01/29/23 release docusate sodium 100 mg capsule 100 mg PO BID PRN Constipation 01/30/23 01/30/23 Unknown (Colace) Active Medications Generic Name Dose Route Start Last Admin Trade Name Freq PRN Reason Stop Dose Admin Aspirin 81 mg 01/31/23 09:00 01/31/23 08:20 Aspirin 81 Mg Ectab PO 03/02/23 08:59 81 mg DAILY LAKSHMI Administration Atenolol 12.5 mg 01/31/23 09:00 01/31/23 08:21 Atenolol 25 Mg Tablet PO 03/02/23 08:59 12.5 mg DAILY LAKSHMI Administration Atorvastatin Calcium 40 mg 01/31/23 09:00 01/31/23 08:21 Atorvastatin 40 Mg Tab PO 03/02/23 08:59 40 mg DAILY LAKSHMI Administration Lactated Ringer's 1,000 mls @ 80 mls/hr 01/31/23 06:00 01/31/23 05:12 Lr IV 03/02/23 05:59 80 mls/hr .[id number] LAKSHMI Administration Cefepime HCl 2,000 mg/ Syringe 20 mls @ 5 mls/min 01/30/23 18:30 01/31/23 10:11 IV 03/13/23 18:29 5 mls/min Q8H LAKSHMI Administration Protocol Vancomycin HCl 750 mg/ Sodium 265 mls @ 200 mls/hr 01/30/23 20:00 01/31/23 13:40 Chloride IV 03/13/23 19:59 Infused Q8H LAKSHMI Infusion Protocol Miscellaneous 1 each 01/31/23 08:59 01/31/23 07:04 Remove Nicoderm Patch N/A 03/02/23 08:58 Not Given DAILY@[id number] LAKSHMI Nicotine 21 mg 01/30/23 19:00 01/31/23 08:16 Nicotine 21 Mg/24 Hr Tdsy TD 03/01/23 18:59 Not Given DAILY LAKSHMI Olanzapine 2.5 mg 01/30/23 22:10 01/31/23 06:26 Olanzapine 10 Mg/2.1 Ml Sdv IM 03/01/23 22:14 2.5 mg Q4H PRN Administration agitation Pantoprazole Sodium 40 mg 01/31/23 09:00 01/31/23 08:21 Pantoprazole 40 Mg Tab PO 03/02/23 08:59 40 mg DAILY LAKSHMI Administration Protocol NPO Date Last Intake of Fluids: 01/30/23 Date Last Intake of Solids: 01/30/23 Past Medical History Medical History Hypercholesterolemia Hypertension Past Family History Family History Other No significant family history Past Surgical History Surgical History History of orthopedic surgery Social History Smoking Status: Unknown if ever smoked Hx Alcohol Use: No Hx Substance Use: No Physical Exam Vital Signs Last Vital Signs Temp 36.4 C L 01/31/23 13:18 Pulse 60 01/31/23 13:18 Resp 16 01/31/23 13:18 BP 148/78 H 01/31/23 13:18 Pulse Ox 96 01/31/23 13:18 O2 Del Method Room Air 01/31/23 13:18 Testing Laboratory Results 01/31/23 09:22 01/31/23 09:22 PT 11.4 Seconds (9.0-12.0) 01/31/23 09:22 INR 1.0 (0.9-1.1) 01/31/23 09:22 01/30/23 09:08 Gram Stain - Final Thumb,Right Aerobic and Anaerobic Culture - Preliminary Bacillus species not anthracis 01/30/23 06:55 Aerobic Blood Culture - Preliminary Blood No growth in Aerobic bottle after 24 hours. Anaerobic Blood Culture - Preliminary No growth in Anaerobic bottle after 24 hours. 01/30/23 06:55 Aerobic Blood Culture - Preliminary Blood No growth in Aerobic bottle after 24 hours. Anaerobic Blood Culture - Preliminary No growth in Anaerobic bottle after 24 hours.
[2023-01-31] MEDS ORDERED: PROPOFOL IV EMULSION 10 MG/ML 100 ML VIAL IV ONE (14:57)
--- NOTE | 2023-01-31 15:19 | Operative Report ---
Post Operative Report Pre & Post Diagnosis Operation Date: 01/31/23 13:40 Pre-Op Diagnosis: RIGHT THUMB INFECTION Post-Op Diagnosis: RIGHT THUMB INFECTION I identified the patient and participated in the time-out.: Yes Procedure Operation Date: 01/31/23 13:40 Actual Procedures p Patial Amputation Right Thumb(Right) - Xander Infante MD Surgeon Xander Infante M.D. Chocolate Maker Amirah Husain PA-C; no fellow or resident available Estimated Blood Loss 1 Findings Consistent with Post-Op Diagnosis Specimens tip of Right thumb Anesthesia Type MAC Regional Description of Procedure Patient was taken to the operating room, placed under IV sedation with digital block. Time out performed, prepped and draped in routine sterile fashion. I was present during the entire case, please see Dr. Infante's operative report for further detail. I attest to the content of the Intraoperative Record and any orders documented therein. Any exceptions are noted below.
--- NOTE | 2023-01-31 15:23 | Operative Report ---
Post Operative Report Pre & Post Diagnosis Operation Date: 01/31/23 13:40 Pre-Op Diagnosis: RIGHT THUMB INFECTION with necrosis status post tablesaw injury Post-Op Diagnosis: Same I identified the patient and participated in the time-out.: Yes Procedure Operation Date: 01/31/23 13:40 Actual Procedures p revision amputation Right Thumb(Right) - Xander Infante MD Surgeon Xander Infatne MD Nurse Quality Amirah TEJADA no resident or fellow available Estimated Blood Loss 1 Findings Consistent with Post-Op Diagnosis Specimens Culture of right thumb and bone and tissue sent for specimen. Anesthesia Type MAC Regional Complications none Disposition Accompanied Patient To Recovery: No Disposition: Recovery Room Indications Sherif sustained a tablesaw injury to his right thumb 2 weeks ago. This was repaired primarily in the emergency room and he was supposed to seek follow-up with the hand specialist which apparently he did not do. He showed back up into the emergency room yesterday morning. He was noted to have a red and swollen thumb with some serous and purulent drainage. There was also evidence of necrosis at the distal tuft. The radiograph showed a comminuted fracture. The sawblade went through the phalanx almost transversely down to the level of the joint line. Severely comminuted. Not reconstructable. Volar and dorsal joint fragments. Given the infection as well as the evolving skin necrosis and the bone and joint damage I recommended a revision amputation he agreed to proceed. The patient's healthcare is compromised by memory dysfunction.. Description of Procedure Informed consent. Patient identified. He and his daughter identified the operative site as the right thumb. I marked with my initials. Preop surgical timeout was performed. A preop dose of IV antibiotics was given. He was taken to the OR positioned supine on the OR table with the right arm on a hand table. A tourniquet was applied to the right arm. The leg was scrubbed with Betadine and then prepped with Betadine paint. The limb was exsanguinated with gravity and the tourniquet inflated to 225 mmHg. The previous sutures were removed. The wound was opened and a culture was obtained. There was some serous fluid but no purulent drainage. The laceration began about 5 to 7 mm palmar to the tip of the nail plate and proceeded in the coronal plane proximally up through the phalanx to the level of the joint. The laceration began just proximal to the nail plate and above the mid lateral line on both sides. This resulted in a open fracture of the distal phalanx with a 15 mm skin bridge which was likely an adequate perfusion at the tip. I transected the dorsal flap just proximal to the nail germinal matrix. I then extended the incisions proximally in the mid lateral lines for 1-1/2 to 2 cm. I elevated a full-thickness flap and dissected out the flexor and extensor tendons with their attached bone fragments and resected them. The dorsal skin flap and the bone was sent for specimen. I then removed any other extraneous pieces of bone. The volar flap was suitable for repair dorsally. I removed the necrotic margin distally from the volar flap and also debulked it and reshaped it so that it would match the dorsal flap. Copious irrigation was performed. Tourniquet let down and meticulous hemostasis was performed with good but not robust punctate bleeding. I then reapproximated the lateral sides and then reshaped and brought the volar flap up dorsally and held it secured with interrupted 4-0 nylon horizontal mattress and simple stitches. The arm was cleaned with wet and dry sponges. There was good circulation and capillary refill within the both the dorsal and volar skin flaps. Sharp excisional debridement. A soft sterile dressing was applied Xeroform 4 x 4's soft wrap. Patient awakened from anesthesia without difficulty taken to recovery room in stable condition specimens as mentioned above. Counts correct blood loss 1 cc. At the conclusion the operation spoke to patient's family informed of my findings and gave postop instructions. Plan is admit to the hospital for antibiotics and wound care. Follow-up on cultures. The initial length of the laceration was approximately 6 cm shaped like a horseshoe around the end of the finger. Prior to the start of the procedure I did a digital block with 8 cc of 1% plain lidocaine and 0.5% plain Marcaine. I attest to the content of the Intraoperative Record and any orders documented therein. Any exceptions are noted below.
--- NOTE | 2023-01-31 17:10 | Anesthesiology Progress Note ---
Date of Service January 31, 2023 Anesthesia Post Procedure Vital Signs Vital Signs: Temp Pulse Pulse Resp BP BP Pulse Ox 01/31/23 16:40 74 21 138/95 100 01/31/23 16:30 71 20 156/88 H 99 01/31/23 16:20 58 L 12 128/60 99 01/31/23 16:10 63 12 137/63 96 01/31/23 16:00 65 16 147/62 H 96 01/31/23 15:50 65 19 144/68 H 96 01/31/23 15:35 68 13 153/72 H 95 01/31/23 15:40 69 13 169/74 H 97 01/31/23 15:30 71 22 170/70 H 97 01/31/23 15:20 69 18 141/61 H 94 01/31/23 15:10 36.0 C L 70 10 L 148/59 H 92 01/31/23 13:18 36.4 C L 60 16 148/78 H 96 01/31/23 08:00 01/31/23 08:18 36.4 C L 61 18 143/78 H 99 01/31/23 01:01 36.4 C L 73 16 139/79 98 01/31/23 00:57 01/30/23 21:25 68 16 160/80 H 98 O2 Del Method O2 Flow Rate 01/31/23 16:40 Oxymask 9 01/31/23 16:30 Oxymask 9 01/31/23 16:20 Oxymask 9 01/31/23 16:10 Oxymask 9 01/31/23 16:00 Oxymask 9 01/31/23 15:50 Oxymask 9 01/31/23 15:35 Oxymask 9 01/31/23 15:40 Oxymask 9 01/31/23 15:30 Oxymask 9 01/31/23 15:20 Oxymask 9 01/31/23 15:10 Oxymask 9 01/31/23 13:18 Room Air 01/31/23 08:00 Room Air 01/31/23 08:18 Room Air 01/31/23 01:01 Room Air 01/31/23 00:57 Room Air 01/30/23 21:25 Room Air Transfer of Care Handoff Completed per policy Notes Mental Status: alert / awake / arousable and participated in evaluation Patient Amnestic to Procedure: Yes Nausea / Vomiting: adequately controlled Pain: adequately controlled Airway Patency, RR, SpO2: stable & adequate BP & HR: stable & adequate Hydration State: stable & adequate Anesthetic Complications: no major complications apparent
[2023-01-31] MEDS ORDERED: HYDROCODONE/ACETAMOPHEN 5/325MG TAB PO PRN (17:19)
[2023-01-31] MEDS ORDERED: bisacodyL 10 MG SUPP PR PRN (17:19)
[2023-01-31] MEDS ORDERED: HYDROmorphone INJ 1 MG/ML SYRINGE IV PRN (17:19)
[2023-01-31] MEDS ORDERED: NALOXONE HCL 0.4 MG/1 ML VIAL/CARP IV PRN (17:19)
[2023-01-31] MEDS ORDERED: ONDANSETRON INJ 2 MG/ML 2 ML VIAL IV PRN (17:19)
[2023-01-31] MEDS ORDERED: MAGNESIUM HYDROXIDE SUSP 30 ML UDC PO PRN (17:19)
[2023-01-31] MEDS ORDERED: HYDROmorphone INJ 0.5 MG/0.5 ML SYR IV PRN (17:19)
[2023-01-31] MEDS: SODIUM CHLORIDE 0.9% 1,000 ML IV SCH (17:36)
--- NOTE | 2023-01-31 17:53 | Fluoroscopy Report ---
INTRAOPERATIVE RADIOGRAPHS CLINICAL HISTORY: Right thumb amputation. Fluoro time: 3 seconds Ka,r: 0.06 mGy FINDINGS: 2 spot fluoroscopic views of the right thumb are correlated with radiographs dated 01/31/20. Both images show amputation of the right thumb through the interphalangeal joint. Overlying soft tissue edema is noted. IMPRESSION: Intraoperative images from right thumb amputation as above. Electronically signed by: Judson Knowles M.D. 01/31/2023 5:51 PM
[2023-01-31] MEDS: KETOROLAC TROMETHAMINE 15 MG/ML VIAL IV SCH (17:55)
--- NOTE | 2023-01-31 18:26 | Hospitalist Progress Note ---
Date of Service January 31, 2023 Assessment & Plan (1) Open fracture of phalanx of finger: Plan: -Pain control, perioperative abx, DVT PPX, and IV fluids per the primary team -Patient is currently stable with pain well-controlled -Was consulted by the primary team for medical management and pre-operative cardiac clearance -Please see Pre-operative Cardiovascular examination plan for further details -Agree with continuing vancomycin and cefepime for now -Agree with continuing Aspirin when the primary team is comfortable from a bleeding perspective -Will adjust diet to HH; -Thank you for allowing us to participate in the care of this patient, please reach out with any questions or concerns -Medicine will continue to folow (2) Pre-operative cardiovascular examination: Plan: -The patient has been a heavy, long-time smoker (approximately 65 pack years) but does not appear to have a hx of obstructive CAD, MRI, or stroke -Patient had a non-diagnostic exercise stress echo on 08/23/22 without evidence of inducible ischemia with systolic EF WNL -At this time the patient would be considered a moderate risk on the Revised Cardiac Risk index for Pre-Operative risk; would not delay needed surgical clean out and repair for additional workup at this time (3) Cognitive dysfunction: Plan: -patient does not have capacity to make medical decisions as he is confused and has very poor insight into his clinical condition -Fall precautions have been ordered as the patient is frequently getting out of bed and is a fall risk -If the patient continues to be a danger to himself or becomes a danger to staff, restraints may need to be ordered (4) PAD (peripheral artery disease): Plan: -Agree with continuing aspirin when the primary team is comfortable from a bleeding risk (5) Cigarette smoker: Plan: -Will order nicotine patch (6) Hypertension: Plan: -Stable -Can continue atenolol as long as he remains hemodynamically stable (7) Mild CAD: Plan: -Continue aspirin when safe from a bleeding risk -Continue statin Admission and Anticipated Discharge Date Admission Date: January 30, 2023 Subjective Patient seen prior to surgery This morning. Denies any chest pain or shortness of breath. Review of Systems Review of Systems: All systems reviewed & are unremarkable except as noted in Subjective Physical Exam Physical Exam: General: Awake, conversant Heart: S1, S2/regular rate and rhythm, no murmur rubs or gallops Lungs: Clear to auscultation bilaterally. Normal effort Abdomen: Soft/nontender/nondistended. No hepatosplenomegaly Extremities: No clubbing/cyanosis. No edema Behavior: Appropriate, cooperative Results & Data Results & Data Vital Signs (Past 12 Hours) Vital Signs Temp Pulse Pulse Resp BP Pulse Ox O2 Del Method 01/31/23 17:19 36.4 C L 64 18 138/82 97 Room Air 01/31/23 16:40 74 21 138/95 100 Oxymask 01/31/23 16:30 71 20 156/88 H 99 Oxymask 01/31/23 16:20 58 L 12 128/60 99 Oxymask 01/31/23 16:10 63 12 137/63 96 Oxymask 01/31/23 16:00 65 16 147/62 H 96 Oxymask 01/31/23 15:50 65 19 144/68 H 96 Oxymask 01/31/23 15:35 68 13 153/72 H 95 Oxymask 01/31/23 15:40 69 13 169/74 H 97 Oxymask 01/31/23 15:30 71 22 170/70 H 97 Oxymask 01/31/23 15:20 69 18 141/61 H 94 Oxymask 01/31/23 15:10 36.0 C L 70 10 L 148/59 H 92 Oxymask 01/31/23 13:18 36.4 C L 60 16 148/78 H 96 Room Air 01/31/23 08:00 Room Air 01/31/23 08:18 36.4 C L 61 18 143/78 H 99 Room Air O2 Flow Rate 01/31/23 17:19 01/31/23 16:40 9 01/31/23 16:30 9 01/31/23 16:20 9 01/31/23 16:10 9 01/31/23 16:00 9 01/31/23 15:50 9 01/31/23 15:35 9 01/31/23 15:40 9 01/31/23 15:30 9 01/31/23 15:20 9 01/31/23 15:10 9 01/31/23 13:18 01/31/23 08:00 01/31/23 08:18 PG Care Time/CCT Total # of Minutes Spent Total Time Spent with Patient: Total time spent is greater than 50% in coordination of care (as documented) at patient's floor/unit and/or counseling patient: Coding Level of Care Code 29645 SUB INP/OBS CARE 235MIN Diagnoses Open fracture of phalanx of finger S62.609B Pre-operative cardiovascular examination Z01.810 Cognitive dysfunction F09 PAD (peripheral artery disease) I73.9 Cigarette smoker F17.210 Hypertension I10 Mild CAD I25.10
[2023-01-31] MEDS: SENNA 8.6 MG TAB PO SCH (19:48)
[2023-02-01] MEDS: KETOROLAC TROMETHAMINE 15 MG/ML VIAL IV SCH ×3 (00:16→11:45)
[2023-02-01] MEDS: CEFEPIME 2,000 MG in SYRINGE 0 ML IV SCH ×2 (03:13→10:16)
[2023-02-01] MEDS ORDERED: VANCOMYCIN LEVEL ONE (03:30)
[2023-02-01 04:42] LABS: Basophils # (auto) 0.08 K/uL (0.00-0.20); Basophils % (auto) 1.1 %; Eosinophils # (auto) 0.21 K/uL (0.00-0.50); Eosinophils % (auto) 2.9 %; Hematocrit (blood only) 37.9 % (42.0-52.0); Hemoglobin 12.7 g/dl (14.0-18.0); Immature Granulocytes # (auto) 0.03 K/uL (0.01-0.20); Immature Granulocytes % (auto) 0.4 %; Lymphocytes % (auto) 25.1 %; Mean Corpuscular Hemoglobin 31.1 pg (25.0-34.0); Mean Corpuscular Hgb Conc 33.5 g/dL (32.0-36.0); Mean Corpuscular Volume 92.7 fL (80.0-100.0); Mean Platelet Volume 8.7 fL (9.4-12.4); Monocytes % (auto) 9.8 %; Neutrophils # (auto) 4.35 K/uL (1.40-6.50); Neutrophils % (auto) 60.7 %; Platelet Count 311 K/uL (130-400); RDW Coefficient of Variation 13.1 % (11.5-14.5); Red Blood Count 4.09 M/uL (4.70-6.10); White Blood Count 7.17 K/ul (4.8-10.8)
[2023-02-01 04:59] LABS: Albumin Globulin Ratio 1.3 (0.9-2); BUN Creatinine Ratio 15.6 (10-20); Bilirubin,Total 0.7 mg/dl (0.2-1.0); Calcium 9.1 mg/dl (8.6-10.3); Creatinine Clr Calc Pharmacy 72.9 ml/min; Est GFR (African American) 95.8 ml/min; Est GFR (Non-African American) 82.7 ml/min; Magnesium 2.1 mg/dl (1.7-2.4); Potassium 4.2 mmol/L (3.5-5.1)
[2023-02-01] MEDS: VANCOMYCIN HCL 750 MG in SODIUM CHLORIDE 0.9% 250 ML IV SCH (05:27)
[2023-02-01] MEDS: SODIUM CHLORIDE 0.9% 1,000 ML IV SCH (05:29)
[2023-02-01] MEDS: NICOTINE 21 MG/24 HR TDSY TD SCH (07:59)
[2023-02-01] MEDS: ATENOLOL 25 MG TABLET PO SCH (08:39)
[2023-02-01] MEDS: ASPIRIN 81 MG ECTAB PO SCH (08:40)
[2023-02-01] MEDS: ATORVASTATIN 40 MG TAB PO SCH (08:40)
[2023-02-01] MEDS: MULTIVITAMIN TAB PO SCH (08:40)
[2023-02-01] MEDS: PANTOprazole 40 MG TAB PO SCH (08:40)
--- NOTE | 2023-02-01 08:59 | Hospitalist Progress Note ---
Date of Service February 01, 2023 Assessment & Plan (1) Open fracture of phalanx of finger: Plan: POD# 1 s/p Patial Amputation Right Thumb(Right) - Alejo Moore 01/31 EBL 1cc IV Abx: Cefepime, Vancomycin Blood cultures NGTD x 48hrs - monitor Thumb cx from ER 01/30 w/ bacillus species not anthracis on preliminary - monitor Cx from OR pending - GS w/ rare WBC, no organisms seen - monitor WBC wnl, afebrile Pain control, bowel regimen, PT/OT per primary service ASA continued AHA diet Feeling well, patient anxious for dc -- dispo per orthopedics --> discussed w/ Dr Infante who will be by to see patient today but wanting another day or so of IV abx prior to discharge. If dc prior to finalized cx would plan for broad spectrum w/ Bactrim/keflex otherwise CM arranged for home health services at dc Monitor (2) Pre-operative cardiovascular examination: Plan: The patient has been a heavy, long-time smoker (approximately 65 pack years) but does not appear to have a hx of obstructive CAD, MRI, or stroke Non-diagnostic exercise stress August 2022, no indicible ischemia. EF wnl Moderate risk (3) Cognitive dysfunction: Plan: Without capacity for surgical decision making based on not understanding risks of not having done. s/p amputation as above Fall precautions, Supportive care, reassurance 1:1 as needed as patient wanting to get up out of bed/leave Appearing alert/oriented during encounter, but poor decision making capacity. Daughter is POA, has been included in Mr Servin's care pre/postop (4) PAD (peripheral artery disease): Plan: Continues aspirin (5) Cigarette smoker: Plan: nicotine patch (6) Hypertension: Plan: -Stable 135/68 Continues on atenolol (7) Mild CAD: Plan: Continue aspirin/statin Plan Thank you for allowing hospitalist service to participate in the care of Mr Servin. Hospitalist service will follow up in AM, please call with any questions/concerns in the meantime. Admission and Anticipated Discharge Date Admission Date: January 30, 2023 Subjective Evaluated this morning. He is anxious to go home today. Reports pain controlled, no fever/chills, chest pain, shortness of breath. Eating/drinking, he is wanting to back to his cabin. Discussed this is up to orthopedics and they may consider some oral antibiotics but that his cultures are not yet finalized. Sensation to fingers intact, dressing re-enforced overnight. Pain controlled. Discussed w/ CM, home health services set up. They spoke with daughter who is POA yesterday, reporting patient lives by himself in cabin in the [facility] and is very independent at baseline. Patient is alert/oriented, but does have some cognitive limitations but discussed will wait for orthopedics input but possible dc today. Questions/concerns addressed at this time. Physical Exam Physical Exam: General: thin tall gentleman walking around in the room. HEENT: head atraumatic, normocephalic, mmm, trachea midilne Resp: no cough, no tachypnea, good air entry, no w/c/r, 100% on RA CV: RRR, no significant m/r/g, no pitting leonidas GI: +BS, soft, NT : no angel MSK/Neuro: dressing to RIGHT hand c/d/i, s/p thumb amputation, sensation to other digits intact, pulse palpable, cap refill wnl Psych: alert, oriented to person/place/time, cooperative with care, RN at bedside Results & Data Results & Data Vital Signs (Past 12 Hours) Vital Signs Temp Pulse Resp BP Pulse Ox O2 Del Method 02/01/23 06:05 36.5 C 61 18 135/68 100 Room Air 02/01/23 02:45 36.6 C 59 L 14 118/67 100 Room Air Laboratory Results 02/01/23 02/01/23 02/01/23 Range/Units 04:28 04:28 04:28 WBC 7.17 (4.8-10.8) K/ul RBC 4.09 L (4.70-6.10) M/uL Hgb 12.7 L (14.0-18.0) g/dl Hct 37.9 L (42.0-52.0) % MCV 92.7 (80.0-100.0) fL MCH 31.1 (25.0-34.0) pg MCHC 33.5 (32.0-36.0) g/dL RDW Std Deviation 45.0 (36.4-46.3) fL RDW Coeff of Emmy 13.1 (11.5-14.5) % Plt Count 311 (130-400) K/uL MPV 8.7 L (9.4-12.4) fL Immature Gran % (Auto) 0.4 % Neut % (Auto) 60.7 % Lymph % (Auto) 25.1 % [place] % (Auto) 9.8 % Eos % (Auto) 2.9 % Baso % (Auto) 1.1 % Neut # (Auto) 4.35 (1.40-6.50) K/uL Lymph # (Auto) 1.80 (1.20-3.40) K/uL [place] # (Auto) 0.70 H (0.11-0.59) K/uL Eos # (Auto) 0.21 (0.00-0.50) K/uL Baso # (Auto) 0.08 (0.00-0.20) K/uL Immature Gran # (Auto) 0.03 (0.01-0.20) K/uL PT (9.0-12.0) Seconds INR (0.9-1.1) Sodium 135 L (136-145) mmol/L Potassium 4.2 (3.5-5.1) mmol/L Chloride 102 (98-107) mmol/L Carbon Dioxide 30 (21-32) mmol/L Anion Gap 3 (3-11) BUN 14 (6-23) mg/dl Creatinine 0.90 (0.6-1.4) mg/dl Est Cr Clr Drug Dosing 72.9 ml/min Est GFR ( Amer) 95.8 ml/min Est GFR (Non-Af Amer) 82.7 ml/min BUN/Creatinine Ratio 15.6 (10-20) Glucose 142 H (70-99(Fasting)) mg/dl Calcium 9.1 (8.6-10.3) mg/dl Magnesium 2.1 (1.7-2.4) mg/dl Total Bilirubin 0.7 (0.2-1.0) mg/dl AST 19 (13-39) U/L ALT 15 (7-52) U/L Alkaline Phosphatase 74 (34-104) U/L Total Protein 7.0 (6.0-8.3) gm/dl Albumin 4.0 (3.4-5.0) gm/dl Globulin 3.0 (2.5-4.0) gm/dl Albumin/Globulin Ratio 1.3 (0.9-2) Vancomycin Trough 13.5 (10-20) mcg/ml 01/31/23 01/31/23 Range/Units 09:22 09:22 WBC (4.8-10.8) K/ul RBC (4.70-6.10) M/uL Hgb (14.0-18.0) g/dl Hct (42.0-52.0) % MCV (80.0-100.0) fL MCH (25.0-34.0) pg MCHC (32.0-36.0) g/dL RDW Std Deviation (36.4-46.3) fL RDW Coeff of Emmy (11.5-14.5) % Plt Count (130-400) K/uL MPV (9.4-12.4) fL Immature Gran % (Auto) % Neut % (Auto) % Lymph % (Auto) % [place] % (Auto) % Eos % (Auto) % Baso % (Auto) % Neut # (Auto) (1.40-6.50) K/uL Lymph # (Auto) (1.20-3.40) K/uL [place] # (Auto) (0.11-0.59) K/uL Eos # (Auto) (0.00-0.50) K/uL Baso # (Auto) (0.00-0.20) K/uL Immature Gran # (Auto) (0.01-0.20) K/uL PT 11.4 (9.0-12.0) Seconds INR 1.0 (0.9-1.1) Sodium 137 (136-145) mmol/L Potassium 4.1 (3.5-5.1) mmol/L Chloride 104 (98-107) mmol/L Carbon Dioxide 27 (21-32) mmol/L Anion Gap 6 (3-11) BUN 10 (6-23) mg/dl Creatinine 0.65 (0.6-1.4) mg/dl Est Cr Clr Drug Dosing 100.9 ml/min Est GFR ( Amer) 109.5 ml/min Est GFR (Non-Af Amer) 94.5 ml/min BUN/Creatinine Ratio 15.4 (10-20) Glucose 94 (70-99(Fasting)) mg/dl Calcium 9.1 (8.6-10.3) mg/dl Magnesium 2.1 (1.7-2.4) mg/dl Total Bilirubin 0.7 (0.2-1.0) mg/dl AST 21 (13-39) U/L ALT 16 (7-52) U/L Alkaline Phosphatase 71 (34-104) U/L Total Protein 6.7 (6.0-8.3) gm/dl Albumin 3.9 (3.4-5.0) gm/dl Globulin 2.8 (2.5-4.0) gm/dl Albumin/Globulin Ratio 1.4 (0.9-2) Vancomycin Trough (10-20) mcg/ml Diagnostic Findings Finger X-Ray 01/31/23 00:00 INTRAOPERATIVE RADIOGRAPHS CLINICAL HISTORY: Right thumb amputation. Fluoro time: 3 seconds Ka,r: 0.06 mGy FINDINGS: 2 spot fluoroscopic views of the right thumb are correlated with radiographs dated 01/30/2023. Both images show amputation of the right thumb through the interphalangeal joint. Overlying soft tissue edema is noted. IMPRESSION: Intraoperative images from right thumb amputation as above. Electronically signed by: Judson Knowles M.D. 01/31/2023 5:51 PM PG Care Time/CCT Total # of Minutes Spent Total Time Spent with Patient: Total time spent is greater than 50% in coordination of care (as documented) at patient's floor/unit and/or counseling patient: Coding Level of Care Code 58216 SUB INP/OBS CARE 2/35MIN Diagnoses Open fracture of phalanx of finger S62.609B Pre-operative cardiovascular examination Z01.810 Cognitive dysfunction F09 PAD (peripheral artery disease) I73.9 Cigarette smoker F17.210 Hypertension I10 Mild CAD I25.10
--- NOTE | 2023-02-01 10:23 | Pharmacy Report ---
Pharmacy PK ABX Note - Date of Service February 01, 2023 - Assessment and Plan Assessment 02/01: * Reviewed vancomycin level-- predicting slightly above goal range, will decrease vancomycin regimen slightly. S/p Patial Amputation Right Thumb(Right) - 01/31. Thumb cultures growin bacillus species not anthracis. Likely discharge tomorrow for another day of IV antibiotics. 01/30: 77 year old M receiving Vancomycin and Cefepime for treatment of open phalanx fracture. * Day #1 of antimicrobial therapy. * Afebrile and without leukocytosis. Procal and lactate negative. ESR slightly elevated, CRP normal. Renal fxn okay for age, unknown baseline. * To OR tomorrow for amputation. Plan Vancomycin * Maintenance dose: 1000 mg Q12H * Regimen is predicted to achieve target AUC/GURWINDER of 400-600 mg/L.hr * Random level to be ordered if vancomycin continued beyond tomorrow Cefepime * 2000 mg IV every 8 hours Pharmacy will continue to follow and will adjust dose/frequency as necessary. Thank you. Pharmacy has transitioned to AUC monitoring for vancomycin. AUC/GURWINDER is the preferred PK/PD target and is associated with decreased risk of nephrotoxicity compared to traditional trough targets.
--- NOTE | 2023-02-01 11:31 | Orthopedic Progress Note ---
Date of Service February 01, 2023 Assessment & Plan (1) Infection of thumb: Plan: Findings discussed. Surgical results reviewed. Any and all infected bone removed. Unhealthy tissue removed. White count normal. Afebrile. Cultures from ER show bacillus species not anthrax this. Checking with medicine and pharmacy to see if current antibiotics cover this. Other culture done yesterday intraoperatively shows mixed skin ria. Continue IV antibiotics for now until we clarify. Given the cellulitis present I recommend a short course of IV antibiotics. Depending on clinical situation may need to be extended. No osteo-. I think eventually converted to p.o. Self-care and protection of concern. Home nursing is to be arranged. (2) Open fracture of phalanx of finger: Admission and Anticipated Discharge Date Admission Date: January 30, 2023 Subjective No significant problems. Pain is well controlled. Nurse reports mild confu david. Physical Exam Physical Exam: Bandages partly disheveled but intact. He is using his hand. The dressing is otherwise clean and dry. Results & Data Vital Signs (Past 12 Hours) Vital Signs Temp Pulse Resp BP Pulse Ox O2 Del Method 02/01/23 09:00 Room Air 02/01/23 06:05 36.5 C 61 18 135/68 100 Room Air 02/01/23 02:45 36.6 C 59 L 14 118/67 100 Room Air Laboratory Results Laboratory Results WBC 7.17 K/ul (4.8-10.8) 02/01/23 04:28 RBC 4.09 M/uL (4.70-6.10) L 02/01/23 04:28 Hgb 12.7 g/dl (14.0-18.0) L 02/01/23 04:28 Hct 37.9 % (42.0-52.0) L 02/01/23 04:28 MCV 92.7 fL (80.0-100.0) 02/01/23 04:28 MCH 31.1 pg (25.0-34.0) 02/01/23 04:28 MCHC 33.5 g/dL (32.0-36.0) 02/01/23 04:28 RDW Std Deviation 45.0 fL (36.4-46.3) 02/01/23 04:28 RDW Coeff of Emmy 13.1 % (11.5-14.5) 02/01/23 04:28 Plt Count 311 K/uL (130-400) 02/01/23 04:28 MPV 8.7 fL (9.4-12.4) L 02/01/23 04:28 Immature Gran % (Auto) 0.4 % 02/01/23 04:28 Neut % (Auto) 60.7 % 02/01/23 04:28 Lymph % (Auto) 25.1 % 02/01/23 04:28 [place] % (Auto) 9.8 % 02/01/23 04:28 Eos % (Auto) 2.9 % 02/01/23 04:28 Baso % (Auto) 1.1 % 02/01/23 04:28 Neut # (Auto) 4.35 K/uL (1.40-6.50) 02/01/23 04:28 Lymph # (Auto) 1.80 K/uL (1.20-3.40) 02/01/23 04:28 [place] # (Auto) 0.70 K/uL (0.11-0.59) H 02/01/23 04:28 Eos # (Auto) 0.21 K/uL (0.00-0.50) 02/01/23 04:28 Baso # (Auto) 0.08 K/uL (0.00-0.20) 02/01/23 04:28 Immature Gran # (Auto) 0.03 K/uL (0.01-0.20) 02/01/23 04:28 ESR 32 mm/hr (0-20) H 01/30/23 06:55 PT 11.4 Seconds (9.0-12.0) 01/31/23 09:22 INR 1.0 (0.9-1.1) 01/31/23 09:22 Sodium 135 mmol/L (136-145) L 02/01/23 04:28 Potassium 4.2 mmol/L (3.5-5.1) 02/01/23 04:28 Chloride 102 mmol/L (98-107) 02/01/23 04:28 Carbon Dioxide 30 mmol/L (21-32) 02/01/23 04:28 Anion Gap 3 (3-11) 02/01/23 04:28 BUN 14 mg/dl (6-23) 02/01/23 04:28 Creatinine 0.90 mg/dl (0.6-1.4) 02/01/23 04:28 Est Cr Clr Drug Dosing 72.9 ml/min 02/01/23 04:28 Est GFR ( Amer) 95.8 ml/min 02/01/23 04:28 Est GFR (Non-Af Amer) 82.7 ml/min 02/01/23 04:28 BUN/Creatinine Ratio 15.6 (10-20) 02/01/23 04:28 Glucose 142 mg/dl (70-99(Fasting)) H 02/01/23 04:28 Lactate 0.6 mmol/L (0.4-2.0) 01/30/23 06:55 Calcium 9.1 mg/dl (8.6-10.3) 02/01/23 04:28 Magnesium 2.1 mg/dl (1.7-2.4) 02/01/23 04:28 Total Bilirubin 0.7 mg/dl (0.2-1.0) 02/01/23 04:28 AST 19 U/L (13-39) 02/01/23 04:28 ALT 15 U/L (7-52) 02/01/23 04:28 Alkaline Phosphatase 74 U/L (34-104) 02/01/23 04:28 C-Reactive Protein < 0.50 mg/dl (0-0.5) 01/30/23 06:55 Total Protein 7.0 gm/dl (6.0-8.3) 02/01/23 04:28 Albumin 4.0 gm/dl (3.4-5.0) 02/01/23 04:28 Globulin 3.0 gm/dl (2.5-4.0) 02/01/23 04:28 Albumin/Globulin Ratio 1.3 (0.9-2) 02/01/23 04:28 Procalcitonin < 0.05 ng/ml (0-0.5) 01/30/23 06:55 Vancomycin Trough 13.5 mcg/ml (10-20) 02/01/23 04:28 Impressions Chest X-Ray 01/30/23 18:21 XR chest 1V portable HISTORY: pre-operative clearance COMPARISON: None. FINDINGS: The lungs are clear. Cardiac silhouette is normal in size. No pleural effusions. No pneumothorax. IMPRESSION: No acute process. ACT 112: Negative or not required by law. Electronically signed by: Jude Quan M.D. 01/31/2023 7:37 AM Finger X-Ray 01/31/23 00:00 INTRAOPERATIVE RADIOGRAPHS CLINICAL HISTORY: Right thumb amputation. Fluoro time: 3 seconds Ka,r: 0.06 mGy FINDINGS: 2 spot fluoroscopic views of the right thumb are correlated with radiographs dated 01/30/2023. Both images show amputation of the right thumb through the interphalangeal joint. Overlying soft tissue edema is noted. IMPRESSION: Intraoperative images from right thumb amputation as above. Electronically signed by: Judson Knowles M.D. 01/31/2023 5:51 PM
[2023-02-01] MEDS: VANCOMYCIN HCL 1,000 MG in SODIUM CHLORIDE 0.9% 250 ML IV SCH (16:25)
--- NOTE | 2023-02-01 17:35 | Communication Note ---
Date of Service: February 01, 2023 Discussed w/ pharmacy regarding coverage of antibiotics Should be covered w/ Vanco/Cefepime, cefepime likely not helping much but can continue for now while blood cultures still pending but would dc tomorrow Consideration to discharge home on PO Linezolid Forwarded to Dr Infante
[2023-02-01] MEDS: SENNA 8.6 MG TAB PO SCH (20:46)
[2023-02-02] MEDS: VANCOMYCIN HCL 1,000 MG in SODIUM CHLORIDE 0.9% 250 ML IV SCH ×2 (04:43→15:43)
[2023-02-02 08:33] LABS: Basophils # (auto) 0.05 K/uL (0.00-0.20); Basophils % (auto) 0.6 %; Eosinophils # (auto) 0.22 K/uL (0.00-0.50); Eosinophils % (auto) 2.8 %; Hematocrit (blood only) 40.8 % (42.0-52.0); Hemoglobin 14.2 g/dl (14.0-18.0); Immature Granulocytes # (auto) 0.02 K/uL (0.01-0.20); Immature Granulocytes % (auto) 0.3 %; Lymphocytes # (auto) 1.24 K/uL (1.20-3.40); Mean Corpuscular Hemoglobin 31.4 pg (25.0-34.0); Mean Corpuscular Hgb Conc 34.8 g/dL (32.0-36.0); Mean Corpuscular Volume 90.3 fL (80.0-100.0); Mean Platelet Volume 9.1 fL (9.4-12.4); Monocytes # (auto) 0.73 K/uL (0.11-0.59); Monocytes % (auto) 9.4 %; Neutrophils # (auto) 5.48 K/uL (1.40-6.50); Neutrophils % (auto) 70.9 %; Platelet Count 364 K/uL (130-400); RDW Coefficient of Variation 13.2 % (11.5-14.5); RDW Standard Deviation 43.7 fL (36.4-46.3); Red Blood Count 4.52 M/uL (4.70-6.10); White Blood Count 7.74 K/ul (4.8-10.8)
[2023-02-02 08:41] LABS: Albumin Globulin Ratio 1.3 (0.9-2); Albumin Level 4.3 gm/dl (3.4-5.0); BUN Creatinine Ratio 11.9 (10-20); Bilirubin,Total 0.8 mg/dl (0.2-1.0); Calcium 9.5 mg/dl (8.6-10.3); Creatinine Clr Calc Pharmacy 78.1 ml/min; Est GFR (African American) 98.6 ml/min; Est GFR (Non-African American) 85.1 ml/min; Globulin 3.2 gm/dl (2.5-4.0); Potassium 4.6 mmol/L (3.5-5.1); Total Protein 7.5 gm/dl (6.0-8.3)
--- NOTE | 2023-02-02 08:55 | Hospitalist Progress Note ---
Date of Service February 02, 2023 Assessment & Plan (1) Open fracture of phalanx of finger: Plan: POD# 2 s/p Patial Amputation Right Thumb(Right) - Xander Infante MDon 01/31 EBL 1cc IV Abx: Cefepime, Vancomycin initially * Discussed w/ pharmacy evening 02/01 regarding coverage of antibiotics * Should be covered w/ Vanco/Cefepime, cefepime likely not helping much but can continue for now while blood cultures still pending but would dc tomorrow (dc by primary team) * Consideration to discharge home on PO Linezolid Blood cultures NGTD x72hrs Thumb cx from ER 01/30 w/ bacillus species not anthracis on preliminary - monitor Cx from OR pending - GS w/ rare WBC, no organisms seen - moderate counts mixed probable skin microbiota WBC wnl, afebrile Pain control, bowel regimen, PT/OT per primary service ASA continued AHA diet Hopeful for dc today, CM arranged for HH services at dc (2) Pre-operative cardiovascular examination: Plan: The patient has been a heavy, long-time smoker (approximately 65 pack years) but does not appear to have a hx of obstructive CAD, MRI, or stroke Non-diagnostic exercise stress August 2022, no indicible ischemia. EF wnl Moderate risk (3) Cognitive dysfunction: Plan: Without capacity for surgical decision making based on not understanding risks of not having done. s/p amputation as above Fall precautions, Supportive care, reassurance 1:1 as needed as patient wanting to get up out of bed/leave Appearing alert/oriented during encounter, but poor decision making capacity. Daughter is POA, has been included in Mr Servin's care pre/postop and is interested in him going back to home at his [place] with home health continued at discharge (4) PAD (peripheral artery disease): Plan: Continues aspirin (5) Cigarette smoker: Plan: nicotine patch (6) Hypertension: Plan: -Stable Continues on atenolol (7) Mild CAD: Plan: Continue aspirin/statin Plan Thank you for allowing hospitalist service to participate in the care of Mr Rhett gonzalez. Hospitalist service will sign off. Please call with any questions/concerns Admission and Anticipated Discharge Date Admission Date: January 30, 2023 Subjective Eval this morning, ambulating in the hallways. Denies pain. Wanting to go home. Does not know the building he is in but reports he thinks we are in January, 2022, in [place]. Baseline cognitive issues. Looking out the window and seeing people walking -- he has view of the employee parking lot out back with people entering the building. Ortho possibly to send on PO Linezolid today, CM arranging home health. Denies any fever/chills, chest pain, shortness of breath. Physical Exam Physical Exam: General: thin tall gentleman walking around in the room. HEENT: head atraumatic, normocephalic, mmm, trachea midilne Resp: no cough, no tachypnea, good air entry, no w/c/r, 100% on RA CV: RRR, no significant m/r/g, no pitting leonidas GI: +BS, soft, NT : no angel MSK/Neuro: dressing to RIGHT hand c/d/i, s/p thumb amputation, sensation to other digits intact, pulse palpable, cap refill wnl Psych: alert, oriented to person/place/time, cooperative with care, RN at bedside Results & Data Results & Data Vital Signs (Past 12 Hours) Vital Signs Temp Pulse Pulse Resp BP BP Pulse Ox 02/02/23 08:10 02/02/23 07:00 36.4 C L 77 18 146/86 H 98 02/01/23 23:14 36.3 C L 55 L 18 161/88 H 99 O2 Del Method 02/02/23 08:10 Room Air 02/02/23 07:00 Room Air 02/01/23 23:14 Room Air PG Care Time/CCT Total # of Minutes Spent Total Time Spent with Patient: Total time spent is greater than 50% in coordination of care (as documented) at patient's floor/unit and/or counseling patient: Coding Level of Care Code 26041 SUB INP/OBS CARE 2/35MIN Diagnoses Open fracture of phalanx of finger S62.609B Pre-operative cardiovascular examination Z01.810 Cognitive dysfunction F09 PAD (peripheral artery disease) I73.9 Cigarette smoker F17.210 Hypertension I10 Mild CAD I25.10
[2023-02-02] MEDS: NICOTINE 21 MG/24 HR TDSY TD SCH (09:11)
[2023-02-02] MEDS: MULTIVITAMIN TAB PO SCH (09:12)
[2023-02-02] MEDS: PANTOprazole 40 MG TAB PO SCH (09:12)
[2023-02-02] MEDS: ATORVASTATIN 40 MG TAB PO SCH (09:12)
[2023-02-02] MEDS: ASPIRIN 81 MG ECTAB PO SCH (09:12)
[2023-02-02] MEDS: ATENOLOL 25 MG TABLET PO SCH (09:12)
--- NOTE | 2023-02-02 16:11 | Orthopedic Progress Note ---
Date of Service February 02, 2023 Assessment & Plan (1) Infection of thumb: Plan: Cultures are noted. White count normal afebrile. Talked with daughter regarding some concerns. 1 is medication compliance the other 1 is wound care. We change his dressing and taped it on. His postop dressing was disheveled but mainly intact. She will be with him until Monday at which time he has an appointment. If he is having issues she will need to get back to the ER or consider an alternative living situation. Please he is suitable for discharge. Follow-up on Monday. Pain medication elevation icing. Linezolid 600 p.o. twice daily per hospitalist recommendations. Pathology pending. (2) Open fracture of phalanx of finger: Admission and Anticipated Discharge Date Admission Date: January 30, 2023 Subjective Patient reports no issues. Sitting in a chair. Daughter and grandson here. He would like to go home. Physical Exam Physical Exam: Dressing removed. Some venous engorgement dorsally but blanches and refills. Good capillary refill palmarly. Sutures intact healing well. Otherwise dry. Swelling is minimal. Erythema largely dissipated. Improved. Results & Data Vital Signs (Past 12 Hours) Vital Signs Temp Pulse Resp BP Pulse Ox O2 Del Method 02/02/23 14:36 36.7 C 64 18 100/62 97 Room Air 02/02/23 08:10 Room Air 02/02/23 07:00 36.4 C L 77 18 146/86 H 98 Room Air Laboratory Results Laboratory Results WBC 7.74 K/ul (4.8-10.8) 02/02/23 08:09 RBC 4.52 M/uL (4.70-6.10) L 02/02/23 08:09 Hgb 14.2 g/dl (14.0-18.0) 02/02/23 08:09 Hct 40.8 % (42.0-52.0) L 02/02/23 08:09 MCV 90.3 fL (80.0-100.0) 02/02/23 08:09 MCH 31.4 pg (25.0-34.0) 02/02/23 08:09 MCHC 34.8 g/dL (32.0-36.0) 02/02/23 08:09 RDW Std Deviation 43.7 fL (36.4-46.3) 02/02/23 08:09 RDW Coeff of Emmy 13.2 % (11.5-14.5) 02/02/23 08:09 Plt Count 364 K/uL (130-400) 02/02/23 08:09 MPV 9.1 fL (9.4-12.4) L 02/02/23 08:09 Immature Gran % (Auto) 0.3 % 02/02/23 08:09 Neut % (Auto) 70.9 % 02/02/23 08:09 Lymph % (Auto) 16.0 % 02/02/23 08:09 Hitchcock % (Auto) 9.4 % 02/02/23 08:09 Eos % (Auto) 2.8 % 02/02/23 08:09 Baso % (Auto) 0.6 % 02/02/23 08:09 Neut # (Auto) 5.48 K/uL (1.40-6.50) 02/02/23 08:09 Lymph # (Auto) 1.24 K/uL (1.20-3.40) 02/02/23 08:09 Hitchcock # (Auto) 0.73 K/uL (0.11-0.59) H 02/02/23 08:09 Eos # (Auto) 0.22 K/uL (0.00-0.50) 02/02/23 08:09 Baso # (Auto) 0.05 K/uL (0.00-0.20) 02/02/23 08:09 Immature Gran # (Auto) 0.02 K/uL (0.01-0.20) 02/02/23 08:09 ESR 32 mm/hr (0-20) H 01/30/23 06:55 PT 11.4 Seconds (9.0-12.0) 01/31/23 09:22 INR 1.0 (0.9-1.1) 01/31/23 09:22 Sodium 136 mmol/L (136-145) 02/02/23 08:09 Potassium 4.6 mmol/L (3.5-5.1) 02/02/23 08:09 Chloride 99 mmol/L (98-107) 02/02/23 08:09 Carbon Dioxide 31 mmol/L (21-32) 02/02/23 08:09 Anion Gap 6 (3-11) 02/02/23 08:09 BUN 10 mg/dl (6-23) 02/02/23 08:09 Creatinine 0.84 mg/dl (0.6-1.4) 02/02/23 08:09 Est Cr Clr Drug Dosing 78.1 ml/min 02/02/23 08:09 Est GFR ( Amer) 98.6 ml/min 02/02/23 08:09 Est GFR (Non-Af Amer) 85.1 ml/min 02/02/23 08:09 BUN/Creatinine Ratio 11.9 (10-20) 02/02/23 08:09 Glucose 121 mg/dl (70-99(Fasting)) H 02/02/23 08:09 Lactate 0.6 mmol/L (0.4-2.0) 01/30/23 06:55 Calcium 9.5 mg/dl (8.6-10.3) 02/02/23 08:09 Magnesium 2.0 mg/dl (1.7-2.4) 02/02/23 08:09 Total Bilirubin 0.8 mg/dl (0.2-1.0) 02/02/23 08:09 AST 23 U/L (13-39) 02/02/23 08:09 ALT 17 U/L (7-52) 02/02/23 08:09 Alkaline Phosphatase 84 U/L (34-104) 02/02/23 08:09 C-Reactive Protein < 0.50 mg/dl (0-0.5) 01/30/23 06:55 Total Protein 7.5 gm/dl (6.0-8.3) 02/02/23 08:09 Albumin 4.3 gm/dl (3.4-5.0) 02/02/23 08:09 Globulin 3.2 gm/dl (2.5-4.0) 02/02/23 08:09 Albumin/Globulin Ratio 1.3 (0.9-2) 02/02/23 08:09 Procalcitonin < 0.05 ng/ml (0-0.5) 01/30/23 06:55 Vancomycin Trough 13.5 mcg/ml (10-20) 02/01/23 04:28 Impressions Chest X-Ray 01/30/23 18:21 XR chest 1V portable HISTORY: pre-operative clearance COMPARISON: None. FINDINGS: The lungs are clear. Cardiac silhouette is normal in size. No pleural effusions. No pneumothorax. IMPRESSION: No acute process. ACT 112: Negative or not required by law. Electronically signed by: Jude Quan M.D. 01/31/2023 7:37 AM Finger X-Ray 01/31/23 00:00 INTRAOPERATIVE RADIOGRAPHS CLINICAL HISTORY: Right thumb amputation. Fluoro time: 3 seconds Ka,r: 0.06 mGy FINDINGS: 2 spot fluoroscopic views of the right thumb are correlated with radiographs dated 01/30/2023. Both images show amputation of the right thumb through the interphalangeal joint. Overlying soft tissue edema is noted. IMPRESSION: Intraoperative images from right thumb amputation as above. Electronically signed by: Judson Knowles M.D. 01/31/2023 5:51 PM
--- NOTE | 2023-02-02 16:44 | Discharge Summary ---
Date of Service February 02, 2023 Admission HPI Per Admitting Provider Patient is a 77-year-old male H significant for HTN, HLD, tobaccor user, who presents to the emergency department today via private vehicle with complaints of "right thumb wound". The patient notes that he was seen here on 01/17/2023 for tablesaw injury to the right thumb. He is right-hand dominant. He states that he has not changed the dressing and has not seen the wound until today when he presented for suture removal and further assessment. He did take the antibiotics as prescribed. He did not follow-up with orthopedics as previously recommended. No fevers or chills. He does note some discomfort to the distal aspect of the right thumb but minimal overall. No nausea or vomiting. He was seen and evaluated by Dr Infante who recommended surgical intervention involved I&D and partial amputation of right thumb. We spoke with patients daughter who is POA. Patient is poor historian. Medical chart was reviewed. NKDA. He is on ASA 81mg daily but he says he does not know why. He says he has been smoking at least a ppd since he was 13. Discharge Data Consultations 01/30/23 09:25 ED Decision to Admit Stat 01/30/23 10:57 Consult Internal Medicine Routine Procedures Performed Operation Date: 01/31/23 13:40 Actual Procedures p Patial Amputation Right Thumb(Right) - Xander Infante MD Hospital Course (1) Infection of thumb: Patient presented the emergency room with worsening right finger pain and blackish discoloration on Monday, January 30, 2023. Orthopedic consultation was placed in the emergency room for evaluation. He was found to have a necrotic right thumb status post injury by a table saw. He had a irrigated, debrided and closed in the emergency room about a week or 2 prior to this visit. Sutures had still remained in place. 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 He was admitted on the orthopedic service, Dr. Infante. He was made NPO. His home medications were continued. Hospitalist consult was placed for medical management and preoperative clearance. He was started on IV vancomycin and discussion for an irrigation and debridement, partial amputation of his right thumb was recommended. He did agree to proceed with surgery. He does have some baseline dementia so plan for treatment was also discussed with his daughter. He underwent surgical intervention with IV sedation and a digital block with Dr. Infante on January 31, 2023 in which an irrigation, debridement, partial amputation of his right thumb was performed. His IV vancomycin was continued during his inpatient stay. He tolerated the procedure well without any intraoperative complications. He was placed in a well-padded dressing which was kept in place until postoperative day 2 when it was changed at the bedside. He was allowed out of bed, ambulation as tolerated. He was given a regular diet. His cultures from the operating room grew out bacillus species not and Fine goldia Magna. It was recommended that he continue his IV vancomycin but that he could potentially go home on oral antibiotics due to the amputation of the infected part. Internal medicine recommended linezolid 600 mg twice daily for a week after the procedure. On postoperative day 2 his dressings were changed and his thumb exam revealed sutures intact, capillary fill is brisk, mild bloody drainage, mild edema, normal sensation. A new dressing was applied. His daughter was present at the bedside and wished to take him home. She felt that he would do better with his mentation at home. She was going to stay with him through the weekend. Case management was involved for disposition needs. Speaking to the pharmacist linezolid would cost $1800 for that prescription and requires a preauthorization for his insurance. We elected to switch him to Augmentin 875 mg twice daily and a prescription was sent to his pharmacy. He was discharged to his home in stable condition with his daughter. Home health arrangements had been made by case management. He has follow-up scheduled for Monday, February 06, 2023. Discharge instructions were reviewed. All questions were answered. They know to call with any further problems, questions or concerns.
== END 2023-02-02 18:00 | disposition home health service (06) | DRG 513 ==
LOC: ED 05:25 → EDINP 10:52 → 3N 13:38

== ENCOUNTER 2023-02-16 23:00 | Observation (INO) ==
[2023-02-17 00:29] LABS: Basophils # (auto) 0.06 K/uL (0.00-0.20); Eosinophils # (auto) 0.11 K/uL (0.00-0.50); Eosinophils % (auto) 1.8 %; Hematocrit (blood only) 35.5 % (42.0-52.0); Hemoglobin 12.2 g/dl (14.0-18.0); Immature Granulocytes # (auto) 0.02 K/uL (0.01-0.20); Immature Granulocytes % (auto) 0.3 %; Lymphocytes # (auto) 1.56 K/uL (1.20-3.40); Mean Corpuscular Hemoglobin 31.2 pg (25.0-34.0); Mean Corpuscular Hgb Conc 34.4 g/dL (32.0-36.0); Mean Corpuscular Volume 90.8 fL (80.0-100.0); Mean Platelet Volume 8.9 fL (9.4-12.4); Neutrophils # (auto) 3.65 K/uL (1.40-6.50); Neutrophils % (auto) 60.9 %; Platelet Count 309 K/uL (130-400); RDW Coefficient of Variation 13.5 % (11.5-14.5); RDW Standard Deviation 44.8 fL (36.4-46.3); Red Blood Count 3.91 M/uL (4.70-6.10)
[2023-02-17 00:45] LABS: Albumin Globulin Ratio 1.7 (0.9-2); Albumin Level 3.8 gm/dl (3.4-5.0); BUN Creatinine Ratio 8.7 (10-20); Bilirubin,Total 0.5 mg/dl (0.2-1.0); Calcium 9.2 mg/dl (8.6-10.3); Creatinine Clr Calc Pharmacy 97.4 ml/min; Est GFR (African American) 106.9 ml/min; Est GFR (Non-African American) 92.2 ml/min; Globulin 2.3 gm/dl (2.5-4.0); Potassium 3.5 mmol/L (3.5-5.1); Total Protein 6.1 gm/dl (6.0-8.3)
[2023-02-17 00:51] LABS: Troponin I High Sensitivity 12.3 pg/ml (0-20)
[2023-02-17 01:01] LABS: Thyroid Stimulating Hormone 1.346 uIu/ml (0.300-4.500)
[2023-02-17 01:21] LABS: Partial Thromboplastin Ratio 0.9; Partial Thromboplastin Time 25.2 Seconds (21.0-31.0); Prothrombin Time 11.2 Seconds (9.0-12.0)
[2023-02-17 02:14] LABS: Appearance Urine Clear (Clear); Bilirubin Urine Negative (Negative); Blood Urine Negative (Negative); Color Urine Yellow; Glucose Urine UA Negative (Negative); Ketones Urine Negative (Negative); Leukocyte Esterase Urine Negative (Negative); Nitrite Urine Negative (Negative); Protein Urine Negative (Negative); Specific Gravity Urine 1.006 (1.000-1.030); Urobilinogen Urine Negative (Negative); pH Urine 7.5 (4.5-7.5)
--- NOTE | 2023-02-17 04:17 | CT Scan Report ---
Exam(s): CT HEAD Without Contrast EXAM: CT Head Without Intravenous Contrast CLINICAL HISTORY: Reason for exam: AMS. TECHNIQUE: Axial computed tomography images of the head/brain without intravenous contrast. CTDI is 37.87 mGy and DLP is 624.41 mGy-cm. Automated exposure control was utilized for the study. A dose lowering technique was utilized adhering to the principles of ALARA. COMPARISON: No relevant prior studies available. FINDINGS: Brain: Unremarkable. No hemorrhage. Mild non-specific white matter changes. No edema. There is a small ependymal calcification within the fourth ventricle. Ventricles: Unremarkable. No ventriculomegaly. Bones/joints: Unremarkable. No acute fracture. Soft tissues: Bilateral lens replacements. Sinuses: Chronic ethmoid sinusitis. No acute sinusitis. Mastoid air cells: Unremarkable as visualized. No mastoid effusion. IMPRESSION: No evidence of acute intracranial pathology. Electronically signed by: Anjelica Ruby MD 02/17/23 04:16 AM
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
--- NOTE | 2023-02-17 07:37 | XRay Report ---
XR chest 1V not portable CLINICAL HISTORY: Weakness TECHNIQUE: Single frontal radiograph of the chest was obtained. Comparison: Comparison is made to chest radiograph 01/30/2023 FINDINGS: No lines and tubes are seen. The cardiomediastinal silhouette is normal. The lungs are clear. No evid ence of pleural effusion or pneumothorax. IMPRESSION: No acute chest disease. ACT 112: Negative or not required by law. Electronically signed by: Arash Jones M.D. 02/17/2023 7:36 AM
[2023-02-17] MEDS ORDERED: ONDANSETRON INJ 2 MG/ML 2 ML VIAL IV PRN (08:08)
[2023-02-17] MEDS ORDERED: ACETAMINOPHEN 325 MG TAB PO PRN (08:08)
[2023-02-17] MEDS ORDERED: DOCUSATE SODIUM 100 MG CAP PO PRN (08:08)
--- NOTE | 2023-02-17 08:59 | Electrocardiogram Report ---
Test Reason : Blood Pressure : / mmHG Vent. Rate : 058 BPM Atrial Rate : 058 BPM P-R Int : 116 ms QRS Dur : 106 ms QT Int : 418 ms P-R-T Axes : 100 050 055 degrees QTc Int : 410 ms Sinus bradycardia Otherwise normal ECG When compared with ECG of 30-JAN-2023 19:00, No significant change was found Confirmed by Bala Lawrence ([id number]) on 02/17/2023 8:59:09 AM Referred By: REFERRED SELF Confirmed By:Bala Lawrence
[2023-02-17] MEDS: ATENOLOL 25 MG TABLET PO SCH (09:21)
[2023-02-17] MEDS: ATORVASTATIN 40 MG TAB PO SCH (09:21)
[2023-02-17] MEDS: PANTOprazole 40 MG TAB PO SCH (09:21)
[2023-02-17] MEDS: ASPIRIN 81 MG ECTAB PO SCH (10:32)
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
[2023-02-17] MEDS ORDERED: QUEtiapine FUMARATE 25 MG TABLET PO SCH (21:00)
[2023-02-17] MEDS ORDERED: MELATONIN 3 MG TAB PO PRN (22:40)
--- NOTE | 2023-02-17 22:40 | Communication Note ---
Date of Service: February 17, 2023 10:32pm code steven was called patient found wandering in hallway, history of dementia with confusion/agitation, noncombative states he is not sure what he's looking for. Security came to redirect patient back to room. Patient stated he wanted to leave, nursing was able to redirect him to stay. Patient required repeat instruction to stay in room as it was nighttime. Was offered to call his daughter, patient refused. Per nursing he was woken up to take his PM seroqeul, he took the seroquel, however afterwards felt agitated and left room. Ordered 1:1 prn and 1 dose zyprexa 2.5mg IM as needed for agitation. IV was found displaced and was removed. Given patient's continued confusing and insistence in leaving the room, IM zyprexa was used.
[2023-02-17] MEDS ORDERED: OLANZapine 10 MG/2.1 ML SDV IM PRN (22:43)
[2023-02-18] MEDS ORDERED: OLANZapine 10 MG/2.1 ML SDV IM PRN (04:34)
[2023-02-18] MEDS: ATENOLOL 25 MG TABLET PO SCH (08:30)
[2023-02-18] MEDS: ATORVASTATIN 40 MG TAB PO SCH (08:31)
[2023-02-18] MEDS: PANTOprazole 40 MG TAB PO SCH (08:31)
[2023-02-18] MEDS: ASPIRIN 81 MG ECTAB PO SCH (08:32)
[2023-02-18 09:51] LABS: Hematocrit (blood only) 39.3 % (42.0-52.0); Hemoglobin 13.6 g/dl (14.0-18.0); Mean Corpuscular Hemoglobin 31.1 pg (25.0-34.0); Mean Corpuscular Hgb Conc 34.6 g/dL (32.0-36.0); Mean Corpuscular Volume 89.7 fL (80.0-100.0); Mean Platelet Volume 8.8 fL (9.4-12.4); Platelet Count 340 K/uL (130-400); RDW Coefficient of Variation 13.6 % (11.5-14.5); Red Blood Count 4.38 M/uL (4.70-6.10); White Blood Count 6.76 K/ul (4.8-10.8)
[2023-02-18 10:10] LABS: Calcium 9.6 mg/dl (8.6-10.3); Potassium 3.8 mmol/L (3.5-5.1)
[2023-02-18 10:16] LABS: BUN Creatinine Ratio 13.6 (10-20); Creatinine Clr Calc Pharmacy 76.4 ml/min; Est GFR (African American) 96.7 ml/min; Est GFR (Non-African American) 83.4 ml/min
--- NOTE | 2023-02-18 13:12 | Hospitalist Progress Note ---
Date of Service February 18, 2023 Assessment & Plan (1) Confusion: Plan: Suspected dementia. No evidence of active infection. Head CT scan consistent with age. Psychiatry evaluation pending. Seroquel has been uptitrated from nighttime dosing to twice daily dosing (2) Amputation thumb: Plan: Distal aspect of right thumb was traumatically amputated with a table saw. Sutures are in place. He will follow-up with orthopedics at a later date for suture removal. No evidence of active infection at this time. (3) Mild CAD: Plan: Stable. Continue current medical management with atorvastatin, atenolol, aspirin (4) Hypercholesterolemia: Plan: Stable. Continue Atorvastatin (5) Hypertension: Plan: Stable. Continue Atenolol Plan To be determined Admission and Anticipated Discharge Date Admission Date: February 17, 2023 Subjective Awake and alert. Daughter is at the bedside. Aneudy guadalupe was called last evening because the patient was wandering into other another patient's room apparently. Seroquel has been increased to twice daily dosing. Psychiatry evaluation pending Review of Systems 2 Review of Systems: Constitutional-no fever or chills ENT-no blurred vision, no double vision, no epistaxis, no sore throat Respiratory-no cough, no wheezing, no shortness of breath Cardiac-no palpitations, no chest pain, no syncope GI-no nausea, vomiting, diarrhea, melena, hematochezia -no urinary retention, no urinary incontinence, no dysuria, no hematuria Musculoskeletal-no joint pain, no muscle tenderness Skin-no bruising, no rashes, no pruritus Neuro-no isolated weakness, no paresthesia. Memory loss and confusion Psych-no depression, no anxiety Physical Exam 2 Physical Exam: General-alert and oriented x3, no fevers, no chills HEENT-head atraumatic and normocephalic, pupils equal and reactive to light, extraocular muscles intact Neck-no lymphadenopathy or thyromegaly, trachea midline Chest-clear to auscultation percussion. No rales wheezing or rhonchi Cardiac-regular rate and rhythm, normal S1 and S2 Abdomen-normal bowel sounds, nontender, no hepatosplenomegaly Extremities-no cyanosis, clubbing, or edema Neuro-cranial nerves II through XII intact, motor and sensory function within normal limits, strength symmetrical, no focal deficits Psych-normal affect, normal mood Results & Data Results & Data Vital Signs (Past 12 Hours) Vital Signs Temp Pulse Resp BP Pulse Ox O2 Del Method 02/18/23 08:38 36.4 C L 67 16 122/82 99 Room Air Laboratory Results 02/18/23 09:39 02/18/23 09:39 PG Care Time/CCT Total # of Minutes Spent Total Time Spent with Patient: Total time spent is greater than 50% in coordination of care (as documented) at patient's floor/unit and/or counseling patient: Coding Level of Care Code 70545 SUB INP/OBS CARE 3/50MIN Diagnoses Confusion R41.0 Amputation thumb S68.019A Mild CAD I25.10 Hypercholesterolemia E78.00 Hypertension I10
--- OUTSIDE RECORDS SUMMARY | 2023-02-18 17:51 | External Medical Summary | Continuity of Care Document ---
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 Name Role Phone Elliot Joe Enrike Primary Care Physician [phone] [id number] [place] [address] [place] [address] Encounter Diagnosis Amputation of right thumb(Discharge Diagnosis) - 02/13/23 Discharge Disposition: Home or Self Care Attending Physician: MATEO Husain, Amirah Duran Referring Physician: MD Naresh, Xander Joya Allergies, Adverse Reactions, Alerts No Known Allergies Medications atenolol 25 mg oral tablet Start: 12/08/20 8:51:00 EDT, 1 tab, PO, Daily Start Date: 12/08/20 Status: Ordered atorvastatin Start: 02/25/20 8:38:00 EST, 40 mg =, PO, qhs Start Date: 02/25/20 Status: Ordered omeprazole Start: 02/25/20 8:38:00 EST, 20 mg =, PO, qAM Start Date: 02/25/20 Status: Ordered Prevagen 50 mcg oral capsule Start: 12/08/20 8:51:00 EDT, 1 cap, PO, Daily Start Date: 12/08/20 Status: Ordered Mental Status 02/13/23 Barriers to Learning one year None evide nt Mandatory Health Literacy Documentation Yes Health Literacy Communication Barriers N ever Primary Language Egyptian Problem List Condition Confirmation Course Effective Dates Status Health St atus Informant Arthritis Confirmed Active 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 Heartburn Confirmed Active Hypertension Confirmed Active Swallowing problem Confirmed Active Amputation of right thumb Confirmed Active Diagnosis Diagnosis Type Effective Dates Health Status Clinical Service Informant Amputation of right thumb Discharge Diagnosis 11/13/23 Procedures Procedure Date Related Diagnosis Body Site Status Amputation 2022 Completed Colonoscopy Completed 1right thumb Social History Social History Type Response Smoking Status Never smoked cigaret ricky Sex Male Patient Care team information Care Team Personnel Name: MD Elliot, Joe Calvert Position: Referring - Provider Portal Plus Member Role: Primary Care Provider Address: Address: [facility] [address] [place] [id number] [place] Care Team Related Persons Name: ANUJ MAIER Address: [address] [phone] Name: JULIO MAIER Address: [address] [phone]
--- OUTSIDE RECORDS SUMMARY | 2023-02-18 17:52 | External Medical Summary | Continuity of Care Document ---
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 Name Role Phone ElliotJoe Primary Care Physician [phone] [id number] Date[facility] 02/06/23 - 02/06/23 [facility] [place] [id number] [address] [place] [address] Encounter Diagnosis Amputation of right thumb(Discharge Diagnosis) - 02/06/23 Discharge Disposition: Home or Self Care Attending Physician: MATEO Husain Jennifer R Referring Physician: MD Naresh, Xander Joya Allergies, Adverse Reactions, Alerts No Known Allergies Assessment and Plan Extracted from: Title:Clinical Document Author:MATEO uHsain, Walker Duran Date:02/06/23 ORTHOPAEDICS OUTPATIENT NOTE Name: SHERIF MAIER Patient Number: [id number] : 1945 Date of Service: 02/06/2023 Chief Complaint: Follow-up right thumb, status post I&D and partial amputation with Dr. Infante on January 31, 2023 HPI: Sherif is here today with his daughter. Doing well. No complaints of pain. He is kept the dressings on from the hospital. He has been taking his Augmentin without any issues. He will complete this this evening. Denies any pain. He has kept the dressing clean and dry. OBJECTIVE Vitals: Last Updated 02/06/23 13:05 Date Temp BP Location Pulse RR SpO2 Pain 02/06/23 0 08/31/21 36.3 125/70 55 18 99 08/31/21 0 Height and Weight: Last Updated 08/31/21 08:32 Date BMI Wt(kg) Wt(lb) Method Ht(cm) (ft-in) Method 08/31/21 25.58 85.4 188 Standing Scale 182.7 6-0 Standing 12/25/20 25.06 83 183 Standing Scale 182 5-11 Standing 12/17/20 25.21 83.5 184 Standing Scale 182 5-11 Patient stated Physical Exam Exam of his right thumb: Incision is clean, dry and intact. Dried bloody drainage was cleansed with a sterile saline wipe today. Sutures are intact. Good capillary refill. Thumb is nontender with palpation. No necrosis. No evidence of hematoma or edema. Tolerates gentle movement of the CMC joint. No significant edema throughout his hand or fingers. Mild edema at the right thumb. Distal pulses are 1+. Sensation is normal. ASSESSMENT: Status post irrigation, debridement, partial amputation right thumb on January 31, [address] Infante at [facility]. PLAN: The incision was cleansed with some sterile saline and a new dressing was applied. He was instructed to keep the dressing on at all times. He does have some mild baseline dementia. His daughter has been with him but is going home today. She is going to return over the weekend. No heavy pushing, pulling or lifting. No use of the right hand. Keep the dressing clean and dry at all times. Encouraged elevation with hand above heart to relieve any swelling. Call with any problems, questions or concerns. He can finish out the antibiotics and does not need to refill it as there is no evidence of infection today. Follow-up next week as scheduled. All questions were answered. This chart was completed utilizing [employer] voice recognition software. Grammatical errors, random word insertions, pronoun errors, and in complete sentences are an occasional consequence of the system. Any questions or concerns about the content, text, or information contained within the body of this dictation should be addressed directly to the provider for clarification. 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 Heartburn Confirmed Active Hypertension Confirmed Active Swallowing problem Confirmed Active Diagnosis Diagnosis Type Effective Dates Health Status Clinical Service Informant Amputation of right thumb Discharge Diagnosis 02/06/23 Non-Specified Procedures Procedure Date Related Diagnosis Body Site Status Amputation 2022 Completed Colonoscopy Completed 1right thumb Social History Social History Type Response Smoking Status Never smoked cigaret ricky Sex Male Ortho Outpt Note * MATEO Husain, Amirah R: PERFORM Event Display: Ortho Outpt Note Authored Date: [id number] ORTHOPAEDICS OUTPATIENT NOTE Name: SHERIF MAIER Patient Number: [id number] : 1945 Date of Service: 02/06/2023 Chief Complaint: Follow-up right thumb, status post I&D and partial amputation with Dr. Infante on January 31, 2023 HPI: Sherif is here today with his daughter. Doing well. No complaints of pain. He is kept the dressings on from the hospital. He has been taking his Augmentin without any issues. He will complete thisthis evening. Denies any pain. He has kept the dressing clean and dry. OBJECTIVE Vitals: Last Updated 02/06/23 13:05 Date Temp BP Location Pulse RR SpO2 Pain 02/06/23 0 08/31/21 36.3 125/70 55 18 99 08/31/21 0 Height and Weight: Last Updated 08/31/21 08:32 Date BMI Wt(kg) Wt(lb) Method Ht(cm) (ft-in) Method 08/31/21 25.58 85.4 188 Standing Scale 182.7 6-0 Standing 12/25/20 25.06 83 183 Standing Scale 182 5-11 Standing 12/17/20 25.21 83.5 184 Standing Scale 182 5-11 Patient stated Physical Exam Exam of his right thumb: Incision is clean, dry and intact. Dried bloody drainage was cleansed witha sterile saline wipe today. Sutures are intact. Good capillary refill. Thumb is nontender with palpation. No necrosis. No evidence of hematoma or edema. Tolerates gentle movement of the CMC joint. No significant edema throughout his hand or fingers. Mild edema at the right thumb. Distal pulses are1+. Sensation is normal. ASSESSMENT: Status post irrigation, debridement, partial amputation right thumb on January 31, 2023with Dr. Infante at [facility]. PLAN: The incision was cleansed with some sterile saline and a new dressing was applied. He was instructed to keep the dressing on at all times. He does have some mild baseline dementia. His daughterhas been with him but is going home today. She is going to return over the weekend. No heavy pushing, pulling or lifting. No use of the right hand. Keep the dressing clean and dry at all times. Encouraged elevation with hand above heart to relieve any swelling. Call with any problems, questions or concerns. He can finish out the antibiotics and does not need to refill it as there is no evidence of infection today. Follow-up next week as scheduled. All questions were answered. This chart was completed utilizing [employer] voice recognition software. Grammatical errors,random word insertions, pronoun errors, and in complete sentences are an occasional consequence of the system. Any questions or concerns about the content, text, or information contained within the body of this dictation should be addressed directly to the provider for clarification. Electronic Signature on File Electronically Reviewed/Signed by: Amirah Husain PA-C Author Signature Dt/Tm:02/06/2023 01:58PM Division of Sports Medicine Electronically Reviewed/Signed by: Xander Infante MD Cosigner Signature Dt/Tm: 02/06/2023 04:04 PM Division of Sports Medicine [facility] Patient Care team information Care Team Personnel Name: MD Zarate Edwin Mark Position: Referring - Provider Portal Plus Member Role: Primary Care Provider Address: Address: [facility] [address] [place] [id number] Care Team Related Persons Name: ANUJ MAIER Address: home [address] [place] [phone] Name: JULIO MAIER Address: home [address] [facility] [facility] [place] [phone]
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
[2023-02-18] MEDS: QUEtiapine FUMARATE 25 MG TABLET PO SCH (19:53)
[2023-02-19] MEDS: ATENOLOL 25 MG TABLET PO SCH (09:08)
[2023-02-19] MEDS: ASPIRIN 81 MG ECTAB PO SCH (09:08)
[2023-02-19] MEDS: PANTOprazole 40 MG TAB PO SCH (09:10)
[2023-02-19] MEDS: ATORVASTATIN 40 MG TAB PO SCH (09:10)
[2023-02-19] MEDS: QUEtiapine FUMARATE 25 MG TABLET PO SCH (09:11)
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
== END 2023-02-19 12:35 | disposition home or self-care (01) ==
LOC: EDINP 23:00 → ED 23:00 → SUATTDRO 02-17 05:36 → 3N 02-17 08:08